=== PATIENT | male | born 1985 | race Caucasian/White ===

== ENCOUNTER 2019-12-22 12:15 | Emergency (ER) | payer OTHER, SELFPAY ==
--- NOTE | ~2019-12-22 | CT_ITS ---
EXAMINATION: CT abdomen pelvis w con DATE: 12/22/2019 13:49 INDICATION: Left lower quadrant abdominal pain TECHNIQUE: Computed tomography (CT) of the abdomen and pelvis was performed with 100 mL Omnipaque-350 intravenous contrast. Automated exposure control and iterative reconstruction technique were employe d. The dose-length product was 461.94 mGy-cm. COMPARISON: 04/14/2018 FINDINGS: Unchanged pleural parenchymal scarring and round atelectasis at the anterobasilar right lower lobe. H eart size is normal. No pericardial or pleural effusion. Liver, gallbladder, spleen, pancreas, bilate ral adrenal glands and kidneys are normal. Postoperative change of prior cecal resection with right l ower quadrant ileostomy. No bowel obstruction. Diffuse fatty infiltration of the remaining colon desmond g with moderate scattered diverticulosis without adjacent inflammatory change to suggest diverticulit is. There are couple small fat-containing ventral hernias arising from a region of ventral diastases extending short distance cephalad and caudal to the level of the umbilicus. Bladder is normal. No mirza e intraperitoneal gas or fluid. No pathologically enlarged abdominal or pelvic lymphadenopathy. Mild lumbar levocurvature with minimal spondylosis. IMPRESSION: 1. No acute intra-abdominal/pelvic process. Reviewed, dictated and finalized at location A.
[2019-12-22 12:23] VITALS: BP 134/83; PULSE 84; RESP 18; TEMP 36.2; O2SAT 100
[2019-12-22 13:21] LABS: Basophils Percent Auto 0.4 % (0.2-1.2); Eosinophils Percent Auto 0.4 % (0-4.4); Hematocrit 45.5 % (42.0-52.0); Hemoglobin 15.5 g/dL (14.0-18.0); Immature Granulocyte Absolute 0.04 K/mm3 (0.00-0.031); Immature Granulocyte Percent A 0.5 % (0-0.5); Lymphocytes Absolute Auto 1.97 K/mm3 (0.9-3.2); Lymphocytes Percent Auto 25.7 % (18.3-44.2); Mean Corpuscular HGB Conc 34.1 g/dl (32-36); Mean Corpuscular Hemoglobin 31.1 pg (26-34); Mean Corpuscular Volume 91.2 fl (80-100); Monocytes Absolute Auto 0.5 K/mm3 (0.1-0.6); Monocytes Percent Auto 5.9 % (2.6-8.5); Neutrophils Absolute Auto 5.2 K/mm3 (1.3-6.7); Neutrophils Percent Auto 67.1 % (45.5-73.1); Platelet Count Result 245 k/mm3 (150-375); Red Blood Count 4.99 M/mm3 (4.6-6.20); Red Cell Distribution Width 13.4 % (11.5-14.5); White Blood Count 7.7 K/mm3 (4.5-10.0)
[2019-12-22 13:23] LABS: Add Urine Microscopic? NO; Appearance Urine Clear (Clear); Bilirubin Urine Negative (Negative); Blood Urine Negative (Negative); Color Urine Yellow (Yellow); Glucose Urine UA Negative (Negative); Ketones Urine Negative (Negative); Leukocyte Esterase Ur Negative LEU/UL (Negative); Nitrate Urine Negative (Negative); Protein Urine Negative (Negative); Specific Grav Ur 1.015 (1.001-1.035); Urobilinogen Urine Negative mg/dL (<2.0)
--- NOTE | 2019-12-22 13:29 | ED.ABDPAIN ---
HPI - Abdominal Pain General Chief Complaint: Abdominal Pain Stated Complaint: abd pain Time Seen by Provider: 12/22/19 13:16 Source: patient History of Present Illness HPI narrative: Patient complaining of left lower quadrant pain, like fullness for the last 2 weeks. History of Crohn's disease. Patient was seen by his family physician few days ago and started on prednisone for possible flareup of Crohn's disease. Patient denies any fever, chills, nausea, vomiting, diarrhea, constipation or urinary symptoms. Patient reports intermittent nausea and belching. History of ileostomy. Patient declined to take any pain medication at this time. No family member at the bedside. Related Data Home Medications Medication Instructions Recorded Confirmed amoxicillin 12/22/19 Allergies Allergy/AdvReac Type Severity Reaction Status Date / Time codeine Allergy Unknown flushing, Verified 12/22/19 12:27 feels hot Review of Systems Review of Systems: Narrative: CONSTITUTIONAL: Denies fever, chills, or sweats. EYES: Denies visual changes, redness, or discharge. ENT: Denies rhinorrhea, congestion, sore throat, or otalgia. CARDIOVASCULAR: Denies chest pain, palpitations, or edema. RESPIRATORY: Denies cough or dyspnea. GASTROINTESTINAL: Abdominal pain with nausea GENITOURINARY: Denies dysuria or hematuria. SKIN: Denies rash or itching. MUSCULOSKELETAL: Denies back pain, joint pain, or myalgia. NEUROLOGIC: Denies headache, numbness, or weakness. PSYCHIATRIC: Denies anxiety or depression. PMFSH Family History Family History Mother Family history of scoliosis Social History Social History Smoking status: Former smoker Smoking end date: 06/20/11 Alcohol intake: current Gender identity (if verbalized by the patient): Male Exam Narrative: Exam Narrative: General appearance: Well-developed, well-nourished Skin: Normal color Head: Normocephalic, nontraumatic Eyes: Clear conjunctiva ENT: Oropharynx normal, ears normal, nose normal Neck: Supple, nontender Chest and respiratory: Airway patent, no respiratory distress, no accessory muscle use Heart: Regular rate/rhythm Abdomen: Soft, moderate tenderness left lower quadrant, no organomegaly, quiet bowel sounds Vascular: Normal peripheral pulses, normal capillary refill. 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 Labs, CT abdomen and pelvis with IV contrast, IV fluid ordered. Further plan to follow Differential Diagnosis Differential diagnosis: Likely abdominal pain, diverticulitis and small bowel obstruction Lab Data Result diagrams: 12/22/19 13:11 12/22/19 13:11 Labs: Lab Results 12/22/19 12/22/19 12/22/19 Range/Units 13:11 13:11 13:13 WBC 7.7 (4.5-10.0) K/mm3 RBC 4.99 (4.6-6.20) M/mm3 Hgb 15.5 (14.0-18.0) g/dL Hct 45.5 (42.0-52.0) %
[2019-12-22 13:33] LABS: Alanine Aminotransferase 126 U/L (4-50); Albumin Level 4.3 g/dL (3.5-5.1); Alkaline Phosphatase 68 U/L (38-126); Aspartate Amino Transferase 69 U/L (17-59); Bilirubin,Total 1.6 mg/dL (0.2-1.3); Blood Urea Nitrogen 8 mg/dL (9-20); Calcium 8.8 mg/dL (8.4-10.2); Carbon Dioxide 27 mmol/L (22-30); Chloride 101 mmol/L (98-107); Estimated CRCL calculation 108 ml/min; Estimated Glomerular Filt Rate > 60; Glucose 81 mg/dL (75-110); Lipase 124 U/L (23-300); Potassium 3.8 mmol/L (3.4-5.0); Sodium 137 mmol/L (137-145)
[2019-12-22] MEDS: SODIUM CHLORIDE 0.9% IV 1,000 ML 999 ML IV CONT (14:19)
[2019-12-22 14:20] VITALS: BP 121/80; PULSE 74; RESP 18; TEMP 36.6; O2SAT 99
--- NOTE | 2019-12-22 14:22 | PC.NURSE ---
Patient still reports some complaint of nausea with no worsening in pain level. He does not wish for me to ask EDP for nausea or pain medication at this time.
[2019-12-22 14:58] VITALS: BP 108/76; PULSE 92; RESP 18; TEMP 36.6; O2SAT 98
== END 2019-12-22 15:09 | disposition home or self-care (01) ==
PROVIDERS: Emergency Medicine; Emergency Provider Emergency Medicine; PCP Family Medicine
DX: R10.32 Left lower quadrant pain (principal); K50.90 Crohn's disease, unspecified, without complications; Z87.891 Personal history of nicotine dependence
CPT/HCPCS: 36415; 74177; 80053; 81003; 83690; 85025; 96360; 99284; J7030; Q9967

== ENCOUNTER 2020-12-05 15:03 | Emergency (ER) | payer OTHER, SELFPAY ==
[2020-12-05 15:10] VITALS: BP 152/99; PULSE 115; RESP 16; TEMP 37.1; O2SAT 98
[2020-12-05 15:11] VITALS: BP 152/99; PULSE 115; RESP 16; TEMP 37.1; O2SAT 98
[2020-12-05 15:23] VITALS: BP 125/86
--- NOTE | 2020-12-05 15:24 | ED.GENADULT ---
HPI - General Adult General Chief complaint: Extremity Injury, Lower Stated complaint: lt calf pain Time Seen by Provider: 12/05/20 15:24 Source: patient and RN notes reviewed Mode of arrival: ambulatory Limitations: no limitations History of Present Illness HPI narrative: 34-year-old male presents with complaints of left calf pain for the past 2 hours. ?Jeff reports walking heard a pop and felt pain, increasing pain with walking. ?No treatment. ?Denies radiation of pain. No numbness or tingling or bleeding. No swelling. ?No loss of mobility. Exacerbating factor consists of bearing weight to the leg. ?Denies recent travel or long car rides. History of DVT or PE. ?No chest pain or dyspnea. ?Remains active. The patient reports she has not been diagnosed with COVID-19. ?The patient reports she is not waiting for the results of a COVID-19 lab test. ?The patient reports she does not have fever, chills, weakness, fatigue, or myalgia. ?The patient reports she does not have a new or worsening cough. ?The patient reports she does not have any rhinorrhea, congestion, sore throat, nausea, vomiting, abdominal pain, and diarrhea. Tolerating po intake well. Denies recent traveling. ?Denies concerns for COVID-19 or exposures. ?At this time, the patient is not suspected of having COVID-19. Some parts of this dictation were generated by voice recognition software and may contain typographical and/or grammatical inaccuracies. Related Data Home Medications Medication Instructions Recorded Confirmed cetirizine 10 mg tablet 10 mg PO DAILY PRN 04/16/20 12/05/20 Allergies Allergy/AdvReac Type Severity Reaction Status Date / Time codeine Allergy Unknown flushing, Verified 12/05/20 15:06 feels hot Review of Systems Review of Systems: Narrative: CONSTITUTIONAL: Denies fever, chills, sweats. EYES: Denies visual changes, redness, discharge. ENT: Denies rhinorrhea, congestion, sore throat, otalgia. CARDIOVASCULAR: Denies chest pain, palpitations, edema. RESPIRATORY: Denies dyspnea, wheezing, cough. GASTROINTESTINAL: Denies abdominal pain, nausea, vomiting, diarrhea. SKIN: Denies rash or itching. MUSCULOSKELETAL: Denies acute back pain or myalgia. Complains of Left leg calf pain. NEUROLOGIC: Denies numbness or focal weakness. PSYCHIATRIC: Denies anxiety or depression. All other systems reviewed & are unremarkable except as noted in HPI and below. [facility] Past Medical History Medical History (Updated 12/12/20 @ 06:57 by DALE Domínguez) Colostomy present Crohn's disease of large intestine Ex-smoker for more than 1 year Tinea corporis Surgical History Surgical History (Updated 12/12/20 @ 06:57 by DALE Domínguez) History of abdominal surgery Family History Family History (Updated 12/12/20 @ 06:58 by DALE Domínguez) Mother Family history of scoliosis Diabetes mellitus Father Alive and well Social History Social History (Updated 12/12/20 @ 07:00 by DALE Domínguez) Smoking status: Former smoker Tobacco type: cigarettes Smoking end date: 06/20/11 Alcohol intake: former Alcohol use details: Jeff reports quitting 2 years ago Substance use: former Last use: Jeff reports quitting 1 year ago Living arrangements: with family Occupation/Education: occupation Gender identity (if verbalized by the patient): Male Sexual Orientation (if Verbalized by the Patient): Straight or Heterosexual Comments At time of signature, agree with the nurse past medical, surgical, social, and family history.? There is no relevant family history pertinent to the presenting complaint. Exam Narrative: Exam Narrative: GENERAL: This is a well-nourished, well-developed patient, in no apparent distress. Talks in full sentences and ambulates with LT antalgic gait without dyspnea. HEAD: Normocephalic, atraumatic. EYES: PERRL. Sclera clear/white. Vision is grossly intact. NECK: Neck supple, n
[2020-12-05] MEDS: KETOROLAC (*BKC) 60 MG/2 ML VIAL IM (15:56)
== END 2020-12-05 16:18 | disposition home or self-care (01) ==
PROVIDERS: Emergency Provider Nurse Practitioner Family; PCP Family Medicine
DX: S86.112A Strain of other muscle(s) and tendon(s) of posterior muscle group at lower leg level, left leg, initial encounter (principal); X58.XXXA Exposure to other specified factors, initial encounter; Z93.3 Colostomy status; Z87.891 Personal history of nicotine dependence
CPT/HCPCS: 96372; 99213; G0463; J1885

== ENCOUNTER 2021-01-13 15:19 | Emergency (ER) | payer OTHER, SELFPAY ==
--- NOTE | ~2021-01-13 | CT_ITS ---
EXAMINATION: CT abdomen pelvis w con INDICATION: Right upper quadrant pain, history of Crohn's disease and ileostomy TECHNIQUE: Computed tomographic images of the abdomen and pelvis were obtained after the administrati on of 100 cc of Omnipaque 350 intravenous contrast. The dose-length product (DLP) was 511.89 mGy-cm. Automated exposure control and iterative reconstruction technique were employed. COMPARISON: 12/22/2019 FINDINGS: There is chronic rounded atelectasis of the right lower lobe. The heart size is normal. The liver, spleen, pancreas, gallbladder, and adrenal glands are normal. The kidneys are unremarkable. N o pathologically enlarged abdominal or pelvic lymph nodes are identified. There is no free intraperit santos gas or evidence of bowel obstruction. Changes of right lower quadrant ileostomy formation are n oted. There are multiple midline ventral hernias containing fat. There is mild lumbar spondylosis. IMPRESSION: 1. No CT correlate for the patient's symptoms. Reviewed, dictated and finalized at location A.
[2021-01-13 15:41] VITALS: BP 133/89; PULSE 107; RESP 16; TEMP 37; O2SAT 99
[2021-01-13 16:00] LABS: Basophils Percent Auto 0.4 % (0.2-1.2); Eosinophils Absolute Auto 0.1 K/mm3 (0-0.3); Eosinophils Percent Auto 1.2 % (0-4.4); Hematocrit 44.6 % (42.0-52.0); Hemoglobin 15.6 g/dL (14.0-18.0); Immature Granulocyte Absolute 0.02 K/mm3 (0.00-0.031); Immature Granulocyte Percent A 0.3 % (0-0.5); Lymphocytes Absolute Auto 1.84 K/mm3 (0.9-3.2); Lymphocytes Percent Auto 23.9 % (18.3-44.2); Mean Corpuscular Hemoglobin 30.8 pg (26-34); Mean Corpuscular Volume 88.1 fl (80-100); Mean Platelet Volume 9.8 fl (7.4-10.4); Monocytes Absolute Auto 0.5 K/mm3 (0.1-0.6); Monocytes Percent Auto 5.9 % (2.6-8.5); Neutrophils Absolute Auto 5.3 K/mm3 (1.3-6.7); Neutrophils Percent Auto 68.3 % (45.5-73.1); Platelet Count Result 273 k/mm3 (150-375); Red Blood Count 5.06 M/mm3 (4.6-6.20); Red Cell Distribution Width 12.9 % (11.5-14.5); White Blood Count 7.7 K/mm3 (4.5-10.0)
[2021-01-13 16:15] LABS: Alanine Aminotransferase 183 U/L (4-50); Alkaline Phosphatase 84 U/L (38-126); Anion Gap 13 mmol/L (8-16); Aspartate Amino Transferase 103 U/L (17-59); Bilirubin,Total 2.1 mg/dL (0.2-1.3); Blood Urea Nitrogen 10 mg/dL (9-20); Calcium 9.7 mg/dL (8.4-10.2); Carbon Dioxide 23 mmol/L (22-30); Chloride 103 mmol/L (98-107); Estimated CRCL calculation 89 ml/min; Estimated Glomerular Filt Rate > 60; Glucose 81 mg/dL (65-110); Lipase 94 U/L (23-300); Potassium 3.8 mmol/L (3.4-5.0); Sodium 139 mmol/L (137-145)
[2021-01-13 16:46] LABS: Add Urine Microscopic? YES; Appearance Urine Clear (Clear); Bilirubin Urine Negative (Negative); Blood Urine 1+ (Negative); Color Urine Yellow (Yellow); Glucose Urine UA Negative (Negative); Ketones Urine 2+ mg/dL (Negative); Leukocyte Esterase Ur Negative LEU/UL (Negative); Mucus Urine Few /lpf; Nitrate Urine Negative (Negative); Protein Urine 1+ mg/dL (Negative); RBC Urine 0-2 /hpf (0-2); Urobilinogen Urine Negative mg/dL (<2.0); WBC Urine 0-3 /hpf
[2021-01-13 16:47] LABS: Specific Grav Ur 1.031 (1.001-1.035)
[2021-01-13 18:36] VITALS: BP 128/92; PULSE 87; RESP 18; O2SAT 100
[2021-01-13 18:37] VITALS: BP 128/92; PULSE 91; RESP 18; O2SAT 99
--- NOTE | 2021-01-13 19:16 | ED.ABDPAIN ---
HPI - Abdominal Pain General Chief Complaint: Abdominal Pain Stated Complaint: ABD PAIN Time Seen by Provider: 01/13/21 18:40 Source: patient Mode of arrival: ambulatory Limitations: no limitations History of Present Illness HPI narrative: Patient is a 35 year old male who presents complaining of right upper quadrant pain x4 days. Patient reports feeling of fullness, nausea without vomiting and diarrhea. He reports decreased p.o. intake and decreased appetite. Patient has a history of Crohn's with ileostomy. He denies taking any [id number] medications for relief. He denies known exposure to Covid, patient is not vaccinated for Covid. He denies all other complaints at this time. Related Data Allergies Allergy/AdvReac Type Severity Reaction Status Date / Time codeine Allergy Unknown flushing, Verified 01/13/21 18:38 feels hot Review of Systems Review of Systems: Narrative: CONSTITUTIONAL: Denies fever, chills, or sweats. EYES: Denies visual changes, redness, or discharge. ENT: Denies rhinorrhea, congestion, sore throat, or otalgia. CARDIOVASCULAR: Denies chest pain, palpitations, or edema. RESPIRATORY: Denies cough or dyspnea. GASTROINTESTINAL: Reports right upper abdominal pain nausea and bloating GENITOURINARY: Denies dysuria or hematuria. SKIN: Denies rash or itching. MUSCULOSKELETAL: Denies back pain, joint pain, or myalgia. NEUROLOGIC: Denies headache, numbness, dizziness, or weakness. PSYCHIATRIC: Denies anxiety or depression. PMFSH Past Medical History Medical History Colostomy present Crohn's disease of large intestine Ex-smoker for more than 1 year Tinea corporis Surgical History Surgical History History of abdominal surgery Family History Family History Mother Family history of scoliosis Diabetes mellitus Father Alive and well Social History Social History Smoking status: Former smoker Tobacco type: cigarettes Smoking end date: 06/20/11 Alcohol intake: former Alcohol use details: Jeff reports quitting 2 years ago Substance use: former Last use: Jeff reports quitting 1 year ago Gender identity (if verbalized by the patient): Male Comments At the time of signature, I have reviewed and agree with nursing past medical, surgical, social, and family history unless otherwise noted. Please see nursing chart for further information. There is no relevant family history pertinent to the presenting complaint. Exam Narrative: Exam Narrative: GENERAL: Well-appearing, well-nourished, and in no acute distress. HEAD: Normocephalic, atraumatic. EYES: EOMI. No redness or drainage. Conjunctiva are normal. ENT: Mucous membranes pink and moist. CHEST: No respiratory distress. Clear to auscultation. HEART: Regular rate and rhythm. No murmur appreciated. Normal peripheral pulses. GI: Soft, nontender without rebound, or guarding. No distention. Bowel sounds normal in all quadrants. MUSCULOSKELETAL: No bony tenderness. EXTREMITIES: Normal range of motion. No edema. SKIN: Warm, dry, no rash. NEURO: No focal deficits. Alert and oriented x3. Gait steady. PSYCH: Normal affect. No signs of depression or anxiety. Course Vital Signs Vital signs: Vital Signs Temperature 37.0 C 01/13/21 15:41 Pulse Rate 107 H 01/13/21 15:41 Respiratory Rate 16 01/13/21 15:41 Blood Pressure 133/89 01/13/21 15:41 Pulse Oximetry 99 01/13/21 15:41 Temperature 37.0 C 01/13/21 15:41 Pulse Rate 78 01/13/21 21:52 Respiratory Rate 18 01/13/21 21:52 Blood Pressure 115/84 01/13/21 21:52 Pulse Oximetry 99 01/13/21 21:52 Reviewed. Patient has been instructed to follow-up with his PCP regarding his blood pressure. MDM - Abdominal Pain Differential Ca
[2021-01-13] MEDS: SODIUM CHLORIDE 0.9% IV 1,000 ML 999 ML IV CONT (20:05)
[2021-01-13 20:07] VITALS: BP 130/87; PULSE 88; RESP 18; O2SAT 98
[2021-01-13 21:52] VITALS: BP 115/84; PULSE 78; RESP 18; O2SAT 99
[2021-01-13] MEDS: FAMOTIDINE 20 MG/2 ML VIAL IV PUSH (21:58)
[2021-01-14 00:42] VITALS: BP 121/80; PULSE 79; RESP 18; O2SAT 98
== END 2021-01-14 00:47 | disposition home or self-care (01) ==
PROVIDERS: Emergency Medicine; Emergency Provider Nurse Practitioner; PCP Family Medicine
DX: R10.11 Right upper quadrant pain (principal); K50.10 Crohn's disease of large intestine without complications; Z93.2 Ileostomy status; Z87.891 Personal history of nicotine dependence; R03.0 Elevated blood-pressure reading, without diagnosis of hypertension
CPT/HCPCS: 36415; 74177; 80053; 81001; 83690; 85025; 96361; 96374; 99284; J7030; Q9967

== ENCOUNTER 2021-06-21 12:18 | Emergency (ER) | payer OTHER, SELFPAY ==
--- NOTE | ~2021-06-21 | XR_ITS ---
EXAMINATION: XR chest 2V EXAM DATE: 06/21/2021 13:34 INDICATION: Left-sided chest pain. TECHNIQUE: Frontal and lateral projections of the chest obtained and reviewed. There is no prior leyla dy for comparison. FINDINGS: The lungs are clear. There are no pleural effusions. The cardiomediastinal silhouette is within normal limits. There is no pneumothorax suspected. The bones and soft tissues are unremarkab le. IMPRESSION: No acute cardiopulmonary findings. Reviewed, dictated and finalized at location A. MACOGENETICIST
[2021-06-21 12:44] VITALS: BP 123/88; PULSE 94; RESP 16; TEMP 36.5; O2SAT 100
--- NOTE | 2021-06-21 12:49 | ECG_ITS ---
Measurements Intervals [place] Rate: 89 P: 48 UT: 147 QRS: 55 QRSD: 104 T: 23 QT: 351 QTc: 428 Interpretive Statements SINUS RHYTHM POSSIBLE LEFT ATRIAL ENLARGEMENT INCOMPLETE RIGHT BUNDLE BRANCH BLOCK BORDERLINE T WAVE ABNORMALITY- INFERIOR LEADS BORDERLINE ECG Electronically Signed On 06-21-2021 17:27:29 MACHINE SHOP HELPER by Amos Uribe D.O.
--- NOTE | 2021-06-21 13:11 | ED.GENADULT ---
HPI - General Adult General Chief complaint: Chest Pain Stated complaint: chest pain Time Seen by Provider: 06/21/21 13:10 Source: patient and RN notes reviewed History of Present Illness HPI narrative: Patient is 35 y/o male complaining of left sided chest pain since yesterday. He describes his pain as a tightness and rates it as 4/10. He has states that his symptoms seem to be worse with exertion. He also has some mild SOB. He has no fever or cough. He state that he took Aspirin 325 mg prior to arrival. Related Data Home Medications Medication Instructions Recorded Confirmed famotidine 20 mg tablet 20 mg PO DAILY 01/27/21 01/27/21 ibuprofen 200 mg tablet 200 mg PO Q6H PRN 01/27/21 01/27/21 Allergies Allergy/AdvReac Type Severity Reaction Status Date / Time codeine Allergy Unknown flushing, Verified 06/21/21 19:37 feels hot Review of Systems Constitutional: Constitutional: Denies chills, Denies fever(s), Denies headache(s) and Denies weakness Eyes: Eyes: Denies blurry vision ENT: Denies headache(s) and Denies neck pain Cardiovascular: Cardiovascular: Reports chest pain and Reports dyspnea Respiratory: Respiratory: Denies cough and Reports dyspnea Gastrointestinal: Gastrointestinal: Denies abdominal pain, Denies diarrhea, Denies nausea and Denies vomiting Genitourinary: Genitourinary: Denies hematuria and Denies dysuria Musculoskeletal: Musculoskeletal: Denies back pain and Denies neck pain Neurologic: Denies headache(s) and Denies weakness PMFSH Past Medical History Medical History Colostomy present Crohn's disease of large intestine Ex-smoker for more than 1 year Tinea corporis Surgical History Surgical History History of abdominal surgery Family History Family History Mother Family history of scoliosis Diabetes mellitus Father Alive and well Social History Social History Tobacco type: cigarettes Smoking end date: 06/20/11 Alcohol intake: former Alcohol use details: Jeff reports quitting 2 years ago Substance use: former Last use: Jeff reports quitting 1 year ago Gender identity (if verbalized by the patient): Male Sexual Orientation (if Verbalized by the Patient): Straight or Heterosexual Exam Const: General: no acute distress and well developed Orientation/consciousness: oriented to person, oriented to place, oriented to time and patient oriented x3 HENMT: Head: normocephalic Ears: external ears normal General nose exam: Normal external nose present Eyes: General: appearance normal, both eyes and all related structures Conjunctivae: conjunctivae normal Neck: Neck: normal visual inspection and full ROM Chest: Chest palpation & inspection: normal inspection of the chest and no tenderness Resp: Effort & Inspection: normal respiratory effort Auscultation: clear to auscultation bilaterally Cardio: Rate: regular rate Rhythm: regular rhythm GI: GI Palp: No abdominal tenderness and Yes Soft to palpation Skin: General skin exam: normal color and turgor normal Neuro: General: oriented to person, oriented to place, oriented to time and patient oriented x3 Cognition (Neuro): normal cognition Extrem: General: normal to inspection, full ROM and no pedal edema Psych: Appearance: grossly normal Mental Status: mental status grossly normal Affect: normal affect Course Reevaluation(s) Reevaluation #1: I discussed with patient about his labs, ekg and Xray results. I instructed him to follow up with PCP for further evaluation including possible stress test. Date: 06/21/21 Vital Signs Vital signs: Vital Signs Temperature 36.5 C 06/21/21 12:44 Pulse Rate 94 06/21/21 12:44 Respiratory Rate 16 06/21/21 12:44 Blood Pressure 123/88 06/21/21 12
[2021-06-21 13:24] LABS: Basophils Percent Auto 0.4 % (0.2-1.2); Eosinophils Absolute Auto 0.1 K/mm3 (0-0.3); Eosinophils Percent Auto 1.3 % (0-4.4); Hematocrit 46.8 % (42.0-52.0); Hemoglobin 16.4 g/dL (14.0-18.0); Immature Granulocyte Absolute 0.01 K/mm3 (0.00-0.031); Immature Granulocyte Percent A 0.1 % (0-0.5); Lymphocytes Absolute Auto 1.39 K/mm3 (0.9-3.2); Lymphocytes Percent Auto 16.7 % (18.3-44.2); Mean Corpuscular Hemoglobin 31.5 pg (26-34); Mean Platelet Volume 9.5 fl (7.4-10.4); Monocytes Absolute Auto 0.5 K/mm3 (0.1-0.6); Monocytes Percent Auto 5.6 % (2.6-8.5); Neutrophils Absolute Auto 6.3 K/mm3 (1.3-6.7); Neutrophils Percent Auto 75.9 % (45.5-73.1); Platelet Count Result 260 k/mm3 (150-375); Red Cell Distribution Width 13.2 % (11.5-14.5); White Blood Count 8.3 K/mm3 (4.5-10.0)
[2021-06-21 13:36] LABS: Alanine Aminotransferase 161 U/L (4-50); Albumin Level 4.8 g/dL (3.5-5.1); Alkaline Phosphatase 84 U/L (38-126); Anion Gap 12 mmol/L (8-16); Aspartate Amino Transferase 88 U/L (17-59); Bilirubin,Total 1.6 mg/dL (0.2-1.3); Blood Urea Nitrogen 10 mg/dL (9-20); Calcium 9.8 mg/dL (8.4-10.2); Carbon Dioxide 23 mmol/L (22-30); Chloride 103 mmol/L (98-107); Estimated CRCL calculation 99 ml/min; Estimated Glomerular Filt Rate > 60; Glucose 103 mg/dL (65-110); Lipase 60 U/L (23-300); Potassium 4.1 mmol/L (3.4-5.0); Sodium 138 mmol/L (137-145)
[2021-06-21 13:38] LABS: INR 0.9; Prothrombin Time 12.5 Seconds (11.1-14.7)
[2021-06-21 13:40] LABS: Partial Thromboplastin Time 25.2 SECONDS (22.3-36.8)
[2021-06-21 13:47] LABS: Troponin I < 0.012 ng/mL (0.000-0.034)
[2021-06-21 17:13] LABS: D Dimer 0.27 ug/mL (<0.48)
[2021-06-21 17:14] LABS: Troponin I < 0.012 ng/mL (0.000-0.034)
[2021-06-21 17:23] VITALS: BP 122/84; PULSE 104; RESP 20; TEMP 36.8; O2SAT 97
[2021-06-21 19:36] VITALS: BP 135/96; PULSE 79; RESP 16; O2SAT 98
[2021-06-21 19:37] LABS: Troponin I < 0.012 ng/mL (0.000-0.034)
== END 2021-06-21 20:15 | disposition home or self-care (01) ==
PROVIDERS: Emergency Provider Emergency Medicine; PCP Family Medicine
DX: R07.89 Other chest pain (principal); K50.90 Crohn's disease, unspecified, without complications; Z87.891 Personal history of nicotine dependence; Z93.3 Colostomy status; I45.10 Unspecified right bundle-branch block; R94.31 Abnormal electrocardiogram [ECG] [EKG]
CPT/HCPCS: 36415; 71046; 80053; 83690; 84484; 85025; 85380; 85610; 85730; 93005; 99284

== ENCOUNTER 2022-02-19 09:53 | Outpatient (CLI) | payer OTHER, SELFPAY ==
--- NOTE | 2022-02-19 10:21 | EST_ITS ---
Patient Info Name: Jeff Noguera Age: 36 years : 1985 Gender: Male Ht: 69 in Wt: 180 lbs BSA: 2.01 m2 Exam Date: 02/19/2022 11:01 AM [facility] Patient Status: Outpatient Admit Date: 02/19/2022 Staff Ordering Physician: Fernie Bone MD Live Ammunition Inspector: Sana Jean Baptiste RDCS Attending Provider: Fernie Bone MD Referring Physician: Lizandro DELGADO; Exercise Technologist: Cindy Gorman CT Exercise Physician: Amos Uribe DO Exam Type: CA stress echo Study Info Indications R07.9 - Chest pain, unspecified Summary 1. 1. Negative Anthony exercise stress test for ischemic ST changes by ECG criteria. 2. 2. Reduced functional capacity, achieving 9 METs of workload. 3. 3. Appropriate HR response to exercise. 4. 4. Appropriate HR recovery at 1 minute post exercise. 5. 5. Negative stress echocardiogram for ischemia by wall motion analysis. 6. 6. Patient informed of the above results. Stress Echo Findings Left Ventricle Appropriate increase in LV endocardial thickening with systole. Appropriate augmentation of contractility with systole. No wall motion abnormality. Left Ventricle Normal LV systolic function, no wall motion abnormality. Protocol: Anthony Stress ECG Details Stage: REST Duration (min): 2 min : 19 sec Speed (mph): 0.0 Grade (%): 0 HR (bpm): 88 SBP (mmHg): 121 DBP (mmHg): 86 METS: --- Stage: REST Duration (min): 24 min : 57 sec Speed (mph): 0.0 Grade (%): 0 HR (bpm): 90 SBP (mmHg): 121 DBP (mmHg): 86 METS: --- Stage: STAGE 1 Duration (min): 1 min : 0 sec Speed (mph): 1.7 Grade (%): 10 HR (bpm): 117 SBP (mmHg): 121 DBP (mmHg): 86 METS: --- Stage: STAGE 1 Duration (min): 2 min : 0 sec Speed (mph): 1.7 Grade (%): 10 HR (bpm): 123 SBP (mmHg): 121 DBP (mmHg): 86 METS: --- Stage: STAGE 1 Duration (min): 3 min : 0 sec Speed (mph): 1.7 Grade (%): 10 HR (bpm): 129 SBP (mmHg): 169 DBP (mmHg): 81 METS: --- Stage: STAGE 2 Duration (min): 1 min : 0 sec Speed (mph): 2.5 Grade (%): 12 HR (bpm): 139 SBP (mmHg): 169 DBP (mmHg): 81 METS: --- Stage: STAGE 2 Duration (min): 2 min : 0 sec Speed (mph): 2.5 Grade (%): 12 HR (bpm): 151 SBP (mmHg): 208 DBP (mmHg): 76 METS: --- Stage: STAGE 2 Duration (min): 3 min : 0 sec Speed (mph): 2.5 Grade (%): 12 HR (bpm): 158 SBP (mmHg): 204 DBP (mmHg): 74 METS: --- Stage: STAGE 3 Duration (min): 1 min : 0 sec Speed (mph): 3.4 Grade (%): 14 HR (bpm): 176 SBP (mmHg): 199 DBP (mmHg): 76 METS: --- Stage: STAGE 3 Duration (min): 1 min : 31 sec Speed (mph): 0.0 Grade (%): 0 HR (bpm): 180 SBP (mmHg): 199 DBP (mmHg): 76 METS: --- Stage: RECOVERY Duration (min): 0 min : 28 sec Speed (mph): 0.0 Grade (%): 0 HR (bpm): 170 SBP (mmHg): 199 D
== END 2022-02-19 09:54 | disposition home or self-care (01) ==
LOC: ANHCARD 09:53
PROVIDERS: PCP Family Medicine; Visit Provider Family Medicine
DX: R07.9 Chest pain, unspecified (principal)
CPT/HCPCS: 93351

== ENCOUNTER 2022-09-01 08:56 | Outpatient (CLI) | payer OTHER, SELFPAY ==
--- NOTE | ~2022-09-01 | US_ITS ---
Limited Abdominal Sonogram: Real-time sonographic imaging of the right upper quadrant was performed. Clinical History: Abnormal liver function Findings: The liver appears echogenic, with no evidence of mass lesion or bile duct dilatation. Main portal vein demonstrates normal direction of flow. The gallbladder is well distended, and appears no rmal with no evidence of gallstone or wall thickening. The common bile duct measures 4 mm. The visua lized pancreas, aorta, and IVC are unremarkable. Impression: Diffuse fatty infiltration of the liver. Reviewed, dictated and finalized at location M. Impression: Diffuse fatty infiltration of the liver.
== END 2022-09-01 08:57 | disposition home or self-care (01) ==
LOC: ANHIMG 08:57
PROVIDERS: PCP Family Medicine; Visit Provider Internal Medicine Gastroenterology
DX: R94.5 Abnormal results of liver function studies (principal); K76.0 Fatty (change of) liver, not elsewhere classified
CPT/HCPCS: 76705

== ENCOUNTER 2022-09-25 14:35 | Emergency (ER) | payer OTHER, SELFPAY ==
--- NOTE | ~2022-09-25 | CT_ITS ---
EXAMINATION: CT abdomen pelvis w con DATE: 09/25/2022 17:22 INDICATION: RUQ pain TECHNIQUE: Computed tomography (CT) of the abdomen and pelvis was performed with 100 mL Omnipaque-350 intravenous contrast. Automated exposure control and iterative reconstruction technique were employe d. The dose-length product was 561.54 mGy-cm. COMPARISON: 01/13/2021. FINDINGS: Lower thorax: Right peripheral/basal scar Liver: Normal. Biliary/Gallbladder: Gallbladder is normal. No bile duct dilation. Pancreas: No mass or duct dilation. Spleen: Normal. Adrenals:No mass. Kidneys: No mass, stone, or hydronephrosis. GI tract: No small or large bowel dilation. Right lower quadrant ileostomy. Prior partial right colon ic resection. Appendix not visualized. Diverticulosis without diverticulitis. Colonic submucosal fat as can be seen with chronic IBD, obesity, chemotherapy treatment, and celiac disease. Mesentery/Peritoneum: No ascites, mass, or free air. Retroperitoneum: No mass. Pelvis: Pelvic organs are within normal limits. Soft Tissues: Multiple uncomplicated fat-containing ventral hernias. Bones: No acute osseous finding. IMPRESSION: No acute abdominopelvic process detected. Reviewed, dictated and finalized at location [facility].
[2022-09-25 14:38] VITALS: BP 158/92; PULSE 106; RESP 18; TEMP 36.6; O2SAT 99
[2022-09-25 14:53] LABS: Basophils Percent Auto 0.4 % (0.2-1.2); Eosinophils Absolute Auto 0.1 K/mm3 (0-0.3); Eosinophils Percent Auto 1.2 % (0-4.4); Hematocrit 44.5 % (42.0-52.0); Hemoglobin 15.3 g/dL (14.0-18.0); Immature Granulocyte Absolute 0.02 K/mm3 (0.00-0.031); Immature Granulocyte Percent A 0.2 % (0-0.5); Lymphocytes Absolute Auto 1.72 K/mm3 (0.9-3.2); Lymphocytes Percent Auto 21.4 % (18.3-44.2); Mean Corpuscular HGB Conc 34.4 g/dl (32-36); Mean Corpuscular Hemoglobin 30.9 pg (26-34); Mean Corpuscular Volume 89.9 fl (80-100); Mean Platelet Volume 9.7 fl (7.4-10.4); Monocytes Absolute Auto 0.5 K/mm3 (0.1-0.6); Monocytes Percent Auto 6.5 % (2.6-8.5); Neutrophils Absolute Auto 5.6 K/mm3 (1.3-6.7); Neutrophils Percent Auto 70.3 % (45.5-73.1); Platelet Count Result 281 k/mm3 (150-375); Red Blood Count 4.95 M/mm3 (4.6-6.20); Red Cell Distribution Width 13.5 % (11.5-14.5)
[2022-09-25 15:01] LABS: Appearance Urine Clear (Clear); Bilirubin Urine Negative (Negative); Blood Urine Negative (Negative); Color Urine Dark Yellow (Yellow); Glucose Urine UA Trace mg/dL (Negative); Ketones Urine Trace mg/dL (Negative); Leukocyte Esterase Ur Negative LEU/UL (Negative); Nitrate Urine Negative (Negative); Protein Urine Negative (Negative); pH Urine 5.5 (5.0-9.0)
[2022-09-25 15:04] LABS: Alanine Aminotransferase 88 U/L (6-50); Albumin Level 4.8 g/dL (3.5-5.1); Alkaline Phosphatase 70 U/L (38-126); Anion Gap 9 mmol/L (8-16); Aspartate Amino Transferase 65 U/L (17-59); Bilirubin,Total 1.7 mg/dL (0.2-1.3); Blood Urea Nitrogen 8 mg/dL (9-20); Calcium 9.3 mg/dL (8.4-10.2); Carbon Dioxide 28 mmol/L (22-30); Chloride 103 mmol/L (98-107); Estimated CRCL calculation 109 ml/min; Estimated Glomerular Filt Rate > 60; Glucose 150 mg/dL (65-110); Lipase 81 U/L (23-300); Potassium 3.3 mmol/L (3.4-5.0); Sodium 140 mmol/L (137-145)
[2022-09-25 15:12] LABS: Add Urine Microscopic? NO
[2022-09-25 17:33] VITALS: BP 129/78; PULSE 93; RESP 16; O2SAT 97
[2022-09-25] MEDS: POTASSIUM CHLORIDE 20 MEQ PACKET (FOR LIQUID) 40 MEQ PO (18:07)
--- NOTE | 2022-09-25 18:20 | ED.GENADULT ---
HPI - General Adult General Chief complaint: Abdominal Pain Stated complaint: RUQ pain, jaundice, itching Time Seen by Provider: 09/25/22 16:00 History of Present Illness HPI narrative: 36-year-old male presented to the emergency department for evaluation of concern of increased itching and epigastric pain. Patient reports he was also having dark urine and oily stools. Patient states this is not new to today and has been following up with his physicians for this. Patient reports the pain does worsen with eating. Patient does have an ileostomy secondary to history of Crohn's. Related Data Home Medications Medication Instructions Recorded Confirmed ibuprofen 200 mg tablet (Advil) 200 mg PO Q6H PRN 01/27/21 10/08/22 Allergies Allergy/AdvReac Type Severity Reaction Status Date / Time codeine Allergy Unknown flushing, Verified 10/08/22 15:40 feels hot Review of Systems Review of Systems: All systems reviewed & are unremarkable except as noted in HPI and below PMFSH Past Medical History Medical History Colostomy present Crohn's disease of large intestine Ex-smoker for more than 1 year Tinea corporis Surgical History Surgical History History of abdominal surgery Family History Family History Mother Family history of scoliosis Diabetes mellitus Father Alive and well Social History Social History Smoking status: Former smoker Tobacco type: cigarettes Smoking end date: 06/20/11 Alcohol intake: former Alcohol use details: Jeff reports quitting 2 years ago Substance use: former Last use: Jeff reports quitting 1 year ago Lack of Transportation: No Lack of Food: Never True Current Housing: I Have Housing Concerned About Future Housing: No Difficulty Paying Gas/Electric Bills: YES Difficulty Paying for Meds: YES Currently Unemployed: No Education: High School Diploma/GED Difficulty w/ Childcare or Family Care: No Living arrangements: with family Occupation/Education: occupation Gender identity (if verbalized by the patient): Male Sexual Orientation (if Verbalized by the Patient): Straight or Heterosexual Exam Narrative: APPEARANCE: Well appearing, no pain, no distress, well-nourished. HEAD: normocephalic, atraumatic. EYES: PERRLA/EOMI, conjunctivae clear. NOSE: Normal no drainage NECK: Supple. No adenopathy, no masses. RESPIRATORY: Airway patent, respirations nonlabored. Clear to auscultation bilaterally, no rales, rhonchi, wheezing. CARDIOVASCULAR: Regular rate and rhythm without murmurs rubs or gallops. ABDOMINAL: Soft, nontender, nondistended, normal bowel sounds Rectal exam: Hemoccult negative MUSCULOSKELETAL: Moves all extremities. Strength/ROM intact, No edema, No calf tenderness. NEURO: Alert. Cranial nerves II through XII intact. SKIN: Warm, dry. Normal Color Course Course Emergency Course: 36-year-old male presenting to the ED for complaint of abdominal itching. Patient was concerned about hyperbilirubinemia. Patient was afebrile with no leukocytosis. Patient's hemoglobin is stable. Patient's bilirubin was similar to his baseline at 1.7. CT scan showed no acute abnormalities. UA showed no evidence of urinary tract infection. Patient was comfortable with plan for discharge and close follow-up. All questions concerns were addressed. Vital Signs Vital signs: Vital Signs Temperature 97.8 F 09/25/22 14:38 Pulse Rate 106 H 09/25/22 14:38 Respiratory Rate 18 09/25/22 14:38 Blood Pressure 158/92 H 09/25/22 14:38 Pulse Oximetry 99 09/25/22 14:38 Oxygen Delivery Room Air 09/25/22 14:38 Temperature 97.8 F 09/25/22 14:38 Pulse Rate 84 09/25/22 18:26 Respiratory Rate 16 09/25/22 18:26 Blood Pressure 130/86
[2022-09-25 18:26] VITALS: BP 130/86; PULSE 84; RESP 16; O2SAT 99
== END 2022-09-25 18:27 | disposition home or self-care (01) ==
PROVIDERS: Emergency Medicine; Emergency Provider Emergency Medicine; PCP Family Medicine
DX: R10.13 Epigastric pain (principal); L29.9 Pruritus, unspecified; K50.10 Crohn's disease of large intestine without complications; Z93.3 Colostomy status; Z87.891 Personal history of nicotine dependence
CPT/HCPCS: 36415; 74177; 80053; 81003; 83690; 85025; 99284; A9270; Q9967

== ENCOUNTER 2023-01-24 12:36 | Emergency (ER) | payer OTHER, SELFPAY ==
[2023-01-24] VITALS (42 sets, daily range): BP systolic 110–143; BP diastolic 73–96; PULSE 64–107; RESP 3–22; TEMP 36.2–36.6; O2SAT 90–100
--- NOTE | ~2023-01-24 | XR_ITS ---
Clinical Indication: Chest pain PA and lateral views of the chest: Comparison: 06/21/2021 Findings: The lungs are clear, without evidence of focal consolidation or pleural effusion. Cardiome diastinal silhouette is within normal limits. Bones and soft tissues are unremarkable. Impression: Normal chest. Reviewed, dictated and finalized at location . Impression: Normal chest.
--- NOTE | 2023-01-24 12:39 | ECG_ITS ---
Measurements Intervals Arnold Rate: 106 P: 43 CT: 158 QRS: 55 QRSD: 114 T: 28 QT: 342 QTc: 455 Interpretive Statements SINUS TACHYCARDIA INCOMPLETE RIGHT BUNDLE BRANCH BLOCK [90+ ms QRS DURATION, TERMINAL R IN V1/V2, 40+ ms S IN I/aVL/V4/V5/V6] NONSPECIFIC T-WAVE ABNORMALITY ABNORMAL RHYTHM ECG COMPARED TO ECG 06/21/2021 13:24:47 NO SIGNIFICANT CHANGE Electronically Signed On 01-24-2023 14:10:23 CDT by Fernie Menon M.D.
--- NOTE | 2023-01-24 12:52 | PC.NURSE ---
pt to xray via stretcher at this time
[2023-01-24 12:56] LABS: Basophils Absolute Auto 0.1 K/mm3 (0.0-0.1); Basophils Percent Auto 0.7 % (0.2-1.2); Eosinophils Absolute Auto 0.4 K/mm3 (0-0.3); Eosinophils Percent Auto 5.4 % (0-4.4); Hematocrit 46.2 % (42.0-52.0); Hemoglobin 15.6 g/dL (14.0-18.0); Immature Granulocyte Absolute 0.04 K/mm3 (0.00-0.031); Immature Granulocyte Percent A 0.5 % (0-0.5); Lymphocytes Absolute Auto 2.35 K/mm3 (0.9-3.2); Lymphocytes Percent Auto 30.9 % (18.3-44.2); Mean Corpuscular HGB Conc 33.8 g/dl (32-36); Mean Corpuscular Hemoglobin 30.8 pg (26-34); Mean Corpuscular Volume 91.3 fl (80-100); Mean Platelet Volume 9.3 fl (7.4-10.4); Monocytes Absolute Auto 0.5 K/mm3 (0.1-0.6); Monocytes Percent Auto 7.1 % (2.6-8.5); Neutrophils Absolute Auto 4.2 K/mm3 (1.3-6.7); Neutrophils Percent Auto 55.4 % (45.5-73.1); Platelet Count Result 279 k/mm3 (150-375); Red Blood Count 5.06 M/mm3 (4.6-6.20); Red Cell Distribution Width 13.6 % (11.5-14.5); White Blood Count 7.6 K/mm3 (4.5-10.0)
[2023-01-24 13:05] LABS: Alanine Aminotransferase 126 U/L (6-50); Albumin Level 4.8 g/dL (3.5-5.1); Alkaline Phosphatase 63 U/L (38-126); Anion Gap 9 mmol/L (8-16); Aspartate Amino Transferase 75 U/L (17-59); Blood Urea Nitrogen 8 mg/dL (9-20); Calcium 9.4 mg/dL (8.4-10.2); Carbon Dioxide 22 mmol/L (22-30); Chloride 104 mmol/L (98-107); Estimated CRCL calculation 94 ml/min; Estimated Glomerular Filt Rate > 60; Glucose 114 mg/dL (65-110); INR 0.9; Lipase 79 U/L (23-300); Prothrombin Time 12.8 Seconds (11.1-14.7); Sodium 135 mmol/L (137-145)
[2023-01-24 13:07] LABS: Partial Thromboplastin Time 24.8 SECONDS (22.3-36.8)
[2023-01-24] MEDS: ASPIRIN 81 MG CHEWABLE TABLET 324 MG PO (13:08)
[2023-01-24 13:16] LABS: Troponin I < 0.012 ng/mL (0.000-0.034)
--- NOTE | 2023-01-24 14:20 | ED.CHESTPAIN ---
HPI - Chest Pain General Chief Complaint: Chest Pain Stated Complaint: CP Time Seen by Provider: 01/24/23 13:42 Source: patient Mode of arrival: ambulatory Limitations: no limitations History of Present Illness HPI narrative: Patient is a 37-year-old male who presents ED with report of chest pain. Patient reports having previously been worked up several times for atypical chest pain. Work-ups were always reassuring and thought to be related to his anxiety. Patient reports having intermittent daily chest pain over the last 2 weeks. Denies significant aggravating or alleviating factors, states pain occurs at random. Today around noon, patient experienced a worsening episode of midsternal and left-sided chest pain, radiating through to his back. He states pain was more severe than usual. Worse with taking deep breath. He has not tried anything for the pain today or over the last 2 weeks. Patient also reports having shortness of breath associated with the pain, denies nausea, vomiting, abdominal pain, recent cough or cold symptoms, fevers, lower extremity pain or swelling. Patient denies history of hypertension, hyperlipidemia, diabetes, blood clots. Former smoker. He does have family history of heart disease. Related Data Home Medications Medication Instructions Recorded Confirmed ibuprofen 200 mg tablet (Advil) 200 mg PO Q6H PRN 01/27/21 11/10/22 Allergies Allergy/AdvReac Type Severity Reaction Status Date / Time codeine Allergy Unknown flushing, Verified 11/10/22 13:06 feels hot Review of Systems Review of Systems: CONSTITUTIONAL: Denies fever, chills, or sweats. ENT: Denies rhinorrhea, congestion, sore throat. CARDIOVASCULAR: See HPI. RESPIRATORY: See HPI. GASTROINTESTINAL: Denies abdominal pain, nausea, vomiting. GENITOURINARY: Denies dysuria or hematuria. MUSCULOSKELETAL: See HPI. NEUROLOGIC: Denies headache, numbness, or weakness. PSYCHIATRIC: See HPI. All systems reviewed & are unremarkable except as noted in HPI and below PMFSH Past Medical History Medical History Colostomy present Crohn's disease of large intestine Ex-smoker for more than 1 year Tinea corporis Surgical History Surgical History History of abdominal surgery Family History Family History Mother Family history of scoliosis Diabetes mellitus Father Alive and well Social History Social History Smoking status: Former smoker Tobacco type: cigarettes Smoking end date: 06/20/11 Alcohol intake: former Alcohol use details: Jeff reports quitting 2 years ago Substance use: former Last use: Jeff reports quitting 1 year ago Lack of Transportation: No Lack of Food: Never True Current Housing: I Have Housing Concerned About Future Housing: No Difficulty Paying Gas/Electric Bills: YES Difficulty Paying for Meds: YES Currently Unemployed: No Education: High School Diploma/GED Difficulty w/ Childcare or Family Care: No Living arrangements: with family Occupation/Education: occupation Gender identity (if verbalized by the patient): Male Sexual Orientation (if Verbalized by the Patient): Straight or Heterosexual Exam Narrative: GENERAL: Well appearing, well-nourished, non-toxic, in no acute distress. HEAD: Normocephalic, atraumatic. NECK: Supple. No adenopathy, no masses. RESPIRATORY: Airway patent, respirations nonlabored. Clear to auscultation bilaterally, no rales, rhonchi, wheezing. CARDIOVASCULAR: Regular rate and rhythm without murmurs, rubs, or gallops. Radial pulses 2+ and equal bilaterally. ABDOMINAL: Soft, nontender, nondistended, no hepatosplenomegaly. Normoactive BS. MUSCULOSKELETAL: Moves all extremities. Strength/ROM intact without gross defo
[2023-01-24] MEDS: ACETAMINOPHEN 500 MG TABLET 1000 MG PO (14:24)
[2023-01-24 14:43] LABS: D Dimer < 0.27 ug/mL (<0.48)
[2023-01-24 16:03] LABS: Troponin I < 0.012 ng/mL (0.000-0.034)
[2023-01-24] MEDS: BELLADONNA ALK/PHENOB ELIX 10 ML, MAG HYDROX/ALUMINUM HYD/SIMETH 30 ML, LIDOCAINE HCL 2... PO (16:47)
[2023-01-24] MEDS: busPIRone HCL 10 MG TABLET PO (17:55)
[2023-01-24 19:06] LABS: Troponin I < 0.012 ng/mL (0.000-0.034)
== END 2023-01-24 19:51 | disposition home or self-care (01) ==
PROVIDERS: Emergency Medicine; Emergency Provider Physician Assistant; PCP Family Medicine
DX: R07.89 Other chest pain (principal); F41.9 Anxiety disorder, unspecified; K50.90 Crohn's disease, unspecified, without complications; Z93.3 Colostomy status; Z87.891 Personal history of nicotine dependence; I45.10 Unspecified right bundle-branch block; R00.0 Tachycardia, unspecified; R94.31 Abnormal electrocardiogram [ECG] [EKG]
CPT/HCPCS: 36415; 71046; 80053; 83690; 84484; 85025; 85380; 85610; 85730; 93005; 99284; A9270

== ENCOUNTER 2023-03-16 01:18 | Day surgery (SDC) | payer OTHER, SELFPAY ==
[2023-03-04 10:12] VITALS: BMI 26.6
--- NOTE | 2023-03-15 12:58 | PM.HPGS ---
History of Present Illness History of Present Illness Consent: Risks, benefits, and alternatives have been discussed and questions answered. Patient agrees to proceed with procedure. Chief complaint: epigastric pain Narrative: Jeff Noguera is a 37 year old male who has been having pain in the epigastric area almost every day for the past several weeks. He has also lost about 10 lb recently Review of Systems Review of Systems: All systems reviewed & are unremarkable except as noted in HPI and below PMFSH Past Medical History Medical History Colostomy present Crohn's disease of large intestine Ex-smoker for more than 1 year Tinea corporis Surgical History Surgical History History of abdominal surgery Family History Family History Mother Family history of scoliosis Diabetes mellitus Father Alive and well Social History Social History Smoking packs per day: 1.5 Smoking cigarettes per day: 30.0 Years smoked: 12 Smoking pack-years: 18.00 Smoking status: Former smoker Tobacco type: cigarettes Smoking end date: 06/20/11 Alcohol intake: former Alcohol use details: Jeff reports NO HISTORY OF ABUSE- USE WAS OCC. BUT NO LONGER DRINKS ANY ETOH DUE TO NON-ALCOHOLIC FATTY LIVER Substance use: former Substance use type: does not use and marijuana Last use: Jeff reports NO HISTORY OF ABUSE- USE WAS OCC. RECREATIONAL Lack of Transportation: No Lack of Food: Never True Current Housing: I Have Housing Concerned About Future Housing: No Difficulty Paying Gas/Electric Bills: YES Difficulty Paying for Meds: YES Currently Unemployed: No Education: High School Diploma/GED Difficulty w/ Childcare or Family Care: No Living arrangements: with family Occupation/Education: occupation Gender identity (if verbalized by the patient): Male Sexual Orientation (if Verbalized by the Patient): Straight or Heterosexual Spiritual care concerns: No Meds Home Medications and Allergies Home Medications Medication Instructions Recorded Confirmed Type ibuprofen 200 mg tablet (Advil) 200 mg PO Q6H PRN Pain 01/27/21 03/16/23 History sertraline 25 mg tablet (Zoloft) 25 mg PO DAILY #90 tabs 04/21/23 09/27/23 Rx budesonide 3 mg 3 mg PO DAILY #30 ea 11/10/22 03/16/23 Rx capsule,delayed,extended release buspirone 10 mg tablet 10 mg PO .PRN PRN Anxiety 03/01/23 03/16/23 History Allergies Allergy/AdvReac Type Severity Reaction Status Date / Time codeine Allergy Unknown flushing, Verified 03/16/23 12:33 feels hot Exam Const: General: alert Orientation/consciousness: patient oriented x3 Resp: Auscultation: clear to auscultation bilaterally Cardio: Rhythm: regular rhythm GI: GI Palp: Yes Soft to palpation and No Tenderness to palpation present (GI) Neuro: General: patient oriented x3 Assessment and Plan Assessment and plan (1) Epigastric pain: Code(s): R10.13 - Epigastric pain Status: Acute Assessment and Plan: EGD with possible biopsy or dilatation or cautery.
[2023-03-16 12:25] VITALS: BP 132/81; PULSE 95; RESP 18; TEMP 36.3; O2SAT 99; BMI 27.2
--- NOTE | 2023-03-16 12:42 | WPDANESEPPF ---
Anes - Initial Pre Proc Eval Procedure: Operation Date: 03/16/23 13:45 Proposed Procedures p Esophagogastroduodenoscopy - Gaurav Leone MD Date/Time: 03/16/23 12:42 Surgeon: Gaurav eLone MD Pre Op Diagnosis: epigastric pain Patient Data Age: 37 Gender: M Height: 1.75 m Weight: 83.7 kg Last Vital Signs Temp 97.4 F L 03/16/23 12:25 Pulse 95 03/16/23 12:25 Resp 18 03/16/23 12:25 BP 132/81 03/16/23 12:25 Pulse Ox 99 03/16/23 12:25 O2 Del Method Room Air 03/16/23 12:25 Allergies Allergy/AdvReac Type Severity Reaction Status Date / Time codeine Allergy Unknown flushing, Verified 03/16/23 12:33 feels hot Home Medications Medication Instructions Recorded Confirmed Type ibuprofen 200 mg tablet (Advil) 200 mg PO Q6H PRN Pain 01/27/21 03/16/23 History sertraline 25 mg tablet (Zoloft) 25 mg PO DAILY #90 tabs 10/08/22 03/16/23 Rx budesonide 3 mg 3 mg PO DAILY #30 ea 11/10/22 03/16/23 Rx capsule,delayed,extended release buspirone 10 mg tablet 10 mg PO .PRN PRN Anxiety 03/01/23 03/16/23 History Patient hx anesthesia problems: none Family hx anesthesia problems: none Results Review: All pre-operative results and documents have been reviewed as part of the pre-operative evaluation. [facility] Past Medical History Medical History Colostomy present Crohn's disease of large intestine Ex-smoker for more than 1 year Tinea corporis Surgical History Surgical History History of abdominal surgery Family History Family History Mother Family history of scoliosis Diabetes mellitus Father Alive and well Social History Social History (Updated 03/04/23 @ 10:31 by Jud Freeman RN) Smoking packs per day: 1.5 Smoking cigarettes per day: 30.0 Years smoked: 12 Smoking pack-years: 18.00 Smoking status: Former smoker Tobacco type: cigarettes Smoking end date: 06/20/11 Alcohol intake: former Alcohol use details: Jeff reports NO HISTORY OF ABUSE- USE WAS OCC. BUT NO LONGER DRINKS ANY ETOH DUE TO NON-ALCOHOLIC FATTY LIVER Substance use: former Substance use type: does not use and marijuana Last use: Jeff reports NO HISTORY OF ABUSE- USE WAS OCC. RECREATIONAL Lack of Transportation: No Lack of Food: Never True Current Housing: I Have Housing Concerned About Future Housing: No Difficulty Paying Gas/Electric Bills: YES Difficulty Paying for Meds: YES Currently Unemployed: No Education: High School Diploma/GED Difficulty w/ Childcare or Family Care: No Living arrangements: with family Occupation/Education: occupation Gender identity (if verbalized by the patient): Male Sexual Orientation (if Verbalized by the Patient): Straight or Heterosexual Spiritual care concerns: No Anes - Eval Final PreProcedure Day of Procedure 03/16/23 12:42 Patient weight: normal Heart: regular rate and rhythm Lungs: clear to auscultation Airway: Mallampati scale class II Neurological: alert and oriented Last oral intake: >/= 8 hours ASA classification: III Emergent: no Anesthetic plan: proceed Anesthesia type and monitoring: general GIVS and standard monitoring Results Review: All pre-operative results and documents have been reviewed as part of the pre-operative evaluation. Informed Consent: The patient's anesthetic plan and its attendant risks and benefits were discussed with the patient/family/POA. Questions were solicited and answers provided to the satisfaction of the patient/family/POA.
[2023-03-16] MEDS: LACTATED RINGERS 1,000 ML 150 ML IV CONT (12:44)
[2023-03-16] MEDS: BENZOCAINE (*SP) 60 ML SPRAY CAN (HURRICAINE) 1 SPRAY MUCOUS MEM (13:35)
[2023-03-16 13:55] VITALS: BP 102/57; PULSE 94; RESP 22; O2SAT 96
[2023-03-16 14:05] VITALS: BP 108/76; PULSE 85; RESP 22; O2SAT 97
[2023-03-16 14:15] VITALS: BP 128/90; PULSE 81; RESP 21; O2SAT 97
== END 2023-03-16 14:29 | disposition home or self-care (01) ==
PROVIDERS: PCP Family Medicine; Visit Provider Internal Medicine Gastroenterology
PROC: 0DJ08ZZ Inspection of Upper Intestinal Tract, Via Natural or Artificial Opening Endoscopic (ICD-10-PCS; CPT 43235; principal; 2023-03-16 13:45)
DX: K20.0 Eosinophilic esophagitis (principal); K22.2 Esophageal obstruction; K44.9 Diaphragmatic hernia without obstruction or gangrene; K50.90 Crohn's disease, unspecified, without complications; Z93.3 Colostomy status; Z87.891 Personal history of nicotine dependence
CPT/HCPCS: 43239; 87081; 88305; J2704; J7120

== ENCOUNTER 2023-03-22 07:23 | Outpatient (CLI) | payer OTHER, SELFPAY ==
--- NOTE | ~2023-03-22 | US_ITS ---
Abdominal Sonogram: Real-time sonographic imaging of the abdomen was performed. Clinical History: Fatty liver Findings: The liver appears echogenic, with no evidence of mass lesion or bile duct dilatation. Main portal vein demonstrates normal direction of flow. The spleen is normal in size without evidence of focal lesion. There is a probable 2.8 cm splenule adjacent to the spleen. The gallbladder is well dis tended, and appears normal with no evidence of gallstone or wall thickening. The common bile duct precious sures 4 mm. The visualized pancreas, aorta, and IVC are unremarkable. The right kidney measures 10. 9 cm in length and the left kidney measures 11.2 cm. There is no hydronephrosis or renal calculus. Impression: Diffuse fatty infiltration of the liver. 2.8 cm probable splenule. Reviewed, dictated and finalized at [facility]. Impression: Diffuse fatty infiltration of the liver. 2.8 cm probable splenule.
== END 2023-03-22 07:24 | disposition home or self-care (01) ==
PROVIDERS: PCP Family Medicine; Visit Provider Internal Medicine Gastroenterology
DX: K76.0 Fatty (change of) liver, not elsewhere classified (principal); R94.5 Abnormal results of liver function studies
CPT/HCPCS: 76700

== ENCOUNTER 2023-04-23 11:49 | Emergency (ER) | payer OTHER, SELFPAY ==
[2023-04-23 11:51] VITALS: BP 192/96; PULSE 132; RESP 18; TEMP 36.3; O2SAT 98
[2023-04-23 12:03] VITALS: BP 171/88; PULSE 115; RESP 16; O2SAT 96
--- NOTE | 2023-04-23 12:48 | ED.SKABFB ---
HPI - Skin/Abscess/Foreign Bdy General Chief complaint: Skin/Abscess/Foreign Body Stated complaint: cellulitis Time Seen by Provider: 04/23/23 12:30 History of Present Illness HPI narrative: Patient is a 37-year-old male with a history of Crohn's status post ileostomy presenting with a rash. Patient states that he woke up this morning and noticed a red rash across his lower abdomen. States that it was slightly tender at first but no longer is. States that it looks similar to an episode of cellulitis he had once. States that he thinks he accidentally scratched himself while changing his ostomy bag in the last few days. He denies fevers or chills, nausea or vomiting, abdominal pain, itching. Denies further complaints. Related Data Home Medications Medication Instructions Recorded Confirmed ibuprofen 200 mg tablet (Advil) 200 mg PO Q6H PRN Pain 01/27/21 03/16/23 buspirone 10 mg tablet 10 mg PO .PRN PRN Anxiety 03/01/23 03/16/23 Allergies Allergy/AdvReac Type Severity Reaction Status Date / Time codeine Allergy Unknown flushing, Verified 04/23/23 12:02 feels hot Review of Systems Review of Systems: All systems reviewed & are unremarkable except as noted in HPI and below PMFSH Past Medical History Medical History Colostomy present Crohn's disease of large intestine Ex-smoker for more than 1 year Tinea corporis Surgical History Surgical History History of abdominal surgery Family History Family History Mother Family history of scoliosis Diabetes mellitus Father Alive and well Social History Social History Smoking packs per day: 1.5 Smoking cigarettes per day: 30.0 Years smoked: 12 Smoking pack-years: 18.00 Smoking status: Former smoker Tobacco type: cigarettes Smoking end date: 06/20/11 Alcohol intake: current Alcohol use details: Jeff reports NO HISTORY OF ABUSE- USE WAS OCC. BUT NO LONGER DRINKS ANY ETOH DUE TO NON-ALCOHOLIC FATTY LIVER Substance use: never Substance use type: does not use and marijuana Last use: Jeff reports NO HISTORY OF ABUSE- USE WAS OCC. RECREATIONAL Lack of Transportation: No Lack of Food: Never True Current Housing: I Have Housing Concerned About Future Housing: No Difficulty Paying Gas/Electric Bills: YES Difficulty Paying for Meds: YES Currently Unemployed: No Education: High School Diploma/GED Difficulty w/ Childcare or Family Care: No Living arrangements: with family Occupation/Education: occupation Gender identity (if verbalized by the patient): Male Sexual Orientation (if Verbalized by the Patient): Straight or Heterosexual Spiritual care concerns: No Exam Narrative: GENERAL: Well-appearing, in no acute distress, pleasant and cooperative HEAD: Normocephalic, atraumatic. EYES: PERRLA and EOMI. ENT: Mucous membranes moist. NECK: Supple. CHEST: Clear to auscultation. No respiratory distress. HEART: Mildly tachycardic, regular rhythm ABDOMEN: Soft, nontender, + ileostomy in place with light brown stool in the bag, slightly erythematous rash extending from the ostomy to the left side of his abdomen, slightly warm to the touch, nontender EXTREMITIES: Normal range of motion. SKIN: Warm, dry, as above NEURO: No focal deficits. Alert and oriented x3. PSYCH: Normal mood and affect. Course Vital Signs Vital signs: Vital Signs Temperature 97.4 F L 04/23/23 11:51 Pulse Rate 132 H 04/23/23 11:51 Respiratory Rate 18 04/23/23 11:51 Blood Pressure 192/96 H 04/23/23 11:51 Pulse Oximetry 98 04/23/23 11:51 Temperature 97.4 F L 04/23/23 11:51 Pulse Rate 115 H 04/23/23 12:03 Respiratory Rate 16 04/23/23 12:03 Blood Pressure 171/88 H 04/23/23 12:03 Pulse O
[2023-04-23 13:02] VITALS: BP 132/88; PULSE 100; RESP 17; O2SAT 96
== END 2023-04-23 13:04 | disposition home or self-care (01) ==
PROVIDERS: Emergency Provider Emergency Medicine; PCP Family Medicine
DX: L03.311 Cellulitis of abdominal wall (principal); K50.90 Crohn's disease, unspecified, without complications; Z93.2 Ileostomy status; Z87.891 Personal history of nicotine dependence
CPT/HCPCS: 99283

== ENCOUNTER 2023-05-05 19:02 | Emergency (ER) | payer OTHER, SELFPAY ==
[2023-05-05] VITALS (9 sets, daily range): BP systolic 146–147; BP diastolic 80–93; PULSE 98–113; RESP 12–20; TEMP 36.8; O2SAT 96–100
--- NOTE | ~2023-05-05 | CT_ITS ---
EXAMINATION: CT abdomen pelvis w con DATE: 05/05/2023 22:22 INDICATION: Left upper quadrant abdominal pain TECHNIQUE: Computed tomography (CT) of the abdomen and pelvis was performed with 100 mL Omnipaque-350 intravenous contrast. Automated exposure control and iterative reconstruction technique were employe d. The dose-length product was 739.67 mGy-cm. COMPARISON: 09/25/2022 FINDINGS: Mild discoid atelectasis at the lingula and left lower lobe. Unchanged chronic pleural parenchymal sc arring at the lateral right lung base. Heart size is normal. No pericardial or pleural effusion. Live r, gallbladder, spleen, pancreas, bilateral adrenal glands and kidneys are normal. Suture line at the proximal margin of a right hemicolectomy with right lower quadrant and ileostomy. Chronic diffuse fa tty infiltration of the wall of the remaining decompressed colon which could be related to body habit us or chronic inflammation. There are also multiple colonic diverticula without adjacent inflammatory stranding to suggest diverticulitis. Indeterminate small linear density within the lumen of a loop o f small bowel in the midabdomen. No bowel obstruction. A few small to moderate-sized relatively widem outhed fat-containing ventral hernias along a midline abdominal scar. Bladder is normal. No free intr aperitoneal gas or fluid. No pathologically enlarged abdominal or pelvic lymphadenopathy. IMPRESSION: 1. No acute intra-abdominal/pelvic process. Reviewed, dictated and finalized at location A. L RECORDS MANAGER
[2023-05-05 19:42] LABS: Basophils Percent Auto 0.3 % (0.2-1.2); Eosinophils Percent Auto 0.3 % (0-4.4); Hemoglobin 15.2 g/dL (14.0-18.0); Immature Granulocyte Absolute 0.04 K/mm3 (0.00-0.031); Immature Granulocyte Percent A 0.3 % (0-0.5); Lymphocytes Absolute Auto 1.18 K/mm3 (0.9-3.2); Mean Corpuscular HGB Conc 34.5 g/dl (32-36); Mean Corpuscular Hemoglobin 30.6 pg (26-34); Mean Corpuscular Volume 88.7 fl (80-100); Mean Platelet Volume 9.6 fl (7.4-10.4); Monocytes Absolute Auto 0.4 K/mm3 (0.1-0.6); Monocytes Percent Auto 3.7 % (2.6-8.5); Neutrophils Absolute Auto 10.1 K/mm3 (1.3-6.7); Neutrophils Percent Auto 85.4 % (45.5-73.1); Platelet Count Result 286 k/mm3 (150-375); Red Blood Count 4.96 M/mm3 (4.6-6.20); Red Cell Distribution Width 13.9 % (11.5-14.5); White Blood Count 11.8 K/mm3 (4.5-10.0)
[2023-05-05 19:53] LABS: Potassium 3.6 mmol/L (3.4-5.0)
[2023-05-05 19:56] LABS: Alanine Aminotransferase 119 U/L (6-50); Alkaline Phosphatase 65 U/L (38-126); Anion Gap 14 mmol/L (8-16); Aspartate Amino Transferase 75 U/L (17-59); Bilirubin,Total 1.4 mg/dL (0.2-1.3); Blood Urea Nitrogen 8 mg/dL (9-20); Calcium 9.7 mg/dL (8.4-10.2); Carbon Dioxide 23 mmol/L (22-30); Chloride 102 mmol/L (98-107); Estimated CRCL calculation 108 ml/min; Estimated Glomerular Filt Rate > 60; Glucose 112 mg/dL (65-110); Lipase 63 U/L (23-300); Sodium 139 mmol/L (137-145)
--- NOTE | 2023-05-05 21:51 | ED.ABDPAIN ---
HPI - Abdominal Pain General Chief Complaint: Abdominal Pain Stated Complaint: nausea, vomitting Time Seen by Provider: 05/05/23 21:18 History of Present Illness HPI narrative: This is a 37-year-old male, with history of Crohn's status post ileostomy, who presents to the emergency department complaining of headache and bilateral flank pain for the past day. The patient states he woke early this morning, with pressure-like headache, rated 8/10 that has persisted. He states he has had multiple episodes of nonbloody vomiting with decreased ileostomy output. He has since developed bilateral flank pain, described as dull and rated 7/10. Related Data Home Medications Medication Instructions Recorded Confirmed ibuprofen 200 mg tablet (Advil) 200 mg PO Q6H PRN Pain 01/27/21 04/29/23 Allergies Allergy/AdvReac Type Severity Reaction Status Date / Time codeine Allergy Unknown flushing, Verified 04/29/23 13:58 feels hot Review of Systems Review of Systems: CONSTITUTIONAL: Denies fever, chills, or sweats. CARDIOVASCULAR: Denies chest pain, palpitations, or edema. RESPIRATORY: Denies cough or dyspnea. GASTROINTESTINAL: Abdominal pain, nausea and nonbloody vomiting denies diarrhea. GENITOURINARY: Denies dysuria or hematuria. SKIN: Denies rash or itching. MUSCULOSKELETAL: Denies back pain, joint pain, or myalgia. NEUROLOGIC: Headache denies numbness, dizziness, or weakness. PSYCHIATRIC: Denies anxiety or depression. PMFSH Past Medical History Medical History Colostomy present Crohn's disease of large intestine Ex-smoker for more than 1 year Tinea corporis Surgical History Surgical History History of abdominal surgery Family History Family History Mother Family history of scoliosis Diabetes mellitus Father Alive and well Social History Social History Smoking packs per day: 1.5 Smoking cigarettes per day: 30.0 Years smoked: 12 Smoking pack-years: 18.00 Smoking status: Former smoker Tobacco type: cigarettes Smoking end date: 06/20/11 Alcohol intake: current Alcohol use details: Jeff reports NO HISTORY OF ABUSE- USE WAS OCC. BUT NO LONGER DRINKS ANY ETOH DUE TO NON-ALCOHOLIC FATTY LIVER Substance use: never Substance use type: does not use and marijuana Last use: Jeff reports NO HISTORY OF ABUSE- USE WAS OCC. RECREATIONAL Lack of Transportation: No Lack of Food: Never True Current Housing: I Have Housing Concerned About Future Housing: No Difficulty Paying Gas/Electric Bills: YES Difficulty Paying for Meds: YES Currently Unemployed: No Education: High School Diploma/GED Difficulty w/ Childcare or Family Care: No Living arrangements: with family Occupation/Education: occupation Gender identity (if verbalized by the patient): Male Sexual Orientation (if Verbalized by the Patient): Straight or Heterosexual Spiritual care concerns: No Exam Narrative: GENERAL: Well-developed, well-nourished, appears uncomfortable HEAD: Normocephalic, atraumatic. EYES: PERRLA and EOMI. ENT: Nares clear, no rhinorrhea or epistaxis. Mucous membranes moist. Oropharynx without tonsillar hypertrophy exudate or other lesions. CHEST: Clear to auscultation. No respiratory distress. No wheezes rales or rhonchi HEART: Regular rate and rhythm. No murmur heard. Normal peripheral pulses. ABDOMEN: Soft, mild left upper quadrant tenderness to palpation without rebound or guarding, nondistended, normal active bowel sounds. An ileostomy in the right lower quadrant with normal stool output and no blood. Bilateral CVA tenderness to palpation EXTREMITIES: Normal range of motion. No edema. SKIN: Warm, dry, no rash. NEURO: No focal deficits. Alert and oriented x3.
[2023-05-05] MEDS: PROCHLORPERAZINE EDISYLATE 10 MG/2 ML VIAL IV PUSH (21:54)
[2023-05-05] MEDS: KETOROLAC 30 MG/ML VIAL (*BKC) IV PUSH (21:54)
[2023-05-05] MEDS: diphenhydrAMINE HCl INJ 50 MG/ML VIAL 25 MG IV PUSH (21:54)
[2023-05-05] MEDS: SODIUM CHLORIDE 0.9% IV 2,000 ML 999 ML IV CONT (21:55)
[2023-05-05 21:59] LABS: Appearance Urine Clear (Clear); Bacteria Urine None Seen /hpf; Bilirubin Urine Negative (Negative); Blood Urine Negative (Negative); Color Urine Dark Yellow (Yellow); Glucose Urine UA Negative (Negative); Ketones Urine Trace mg/dL (Negative); Leukocyte Esterase Ur Negative LEU/UL (Negative); Nitrate Urine Negative (Negative); Non Pathogenic Casts 0-2; Protein Urine 1+ mg/dL (Negative); Specific Grav Ur 1.032 (1.001-1.035); Squamous Epithelial Cell Urine None seen /hpf (Few); Urobilinogen Urine 0.2 mg/dL (<2.0); WBC Urine 0-5 /hpf; pH Urine 8.5 (5.0-9.0)
[2023-05-05 22:07] LABS: Add Urine Microscopic? YES
[2023-05-05 22:31] LABS: Influenza A QL RT-PCR Negative (Negative); Influenza B QL RT-PCR Negative (Negative); SARS-CoV-2 RNA PCR Negative (Negative)
[2023-05-05] MEDS: SULFAMETHOXAZOLE/TRIMETHOPRIM 800/160 MG DS TABLET 1 TAB PO (23:22)
--- NOTE | 2023-05-05 23:48 | PC.NURSE ---
Assumed care of pt. Report from VANESSA Dykes. Pt resting quietly per cart. IVF infusing.
[2023-05-06 00:02] VITALS: PULSE 91; RESP 14
[2023-05-06 00:15] VITALS: PULSE 102; RESP 15
[2023-05-06 00:16] VITALS: BP 122/68; PULSE 100; RESP 14
[2023-05-06 00:30] VITALS: PULSE 96; RESP 14
[2023-05-06 00:31] VITALS: BP 121/76; PULSE 91; RESP 13
== END 2023-05-06 00:51 | disposition home or self-care (01) ==
PROVIDERS: Emergency Provider Preventive Medicine Aerospace Medicine; PCP Family Medicine
DX: N10 Acute pyelonephritis (principal); R10.11 Right upper quadrant pain; Z20.822 Contact with and (suspected) exposure to COVID-19; K50.90 Crohn's disease, unspecified, without complications; Z93.2 Ileostomy status; Z87.891 Personal history of nicotine dependence
CPT/HCPCS: 36415; 74177; 80053; 81001; 83690; 85025; 87636; 96361; 96374; 96375; 99284; A9270; J0780; J1200; J1885; J7030; Q9967

== ENCOUNTER 2023-06-08 04:33 | Day surgery (SDC) | payer OTHER, SELFPAY ==
[2023-05-20 09:13] VITALS: BMI 28.8
--- NOTE | 2023-06-06 08:33 | SUR.PREOP ---
Patient called regarding upcoming procedure. Reviewed preop instructions, appointment times, and procedure prep.
--- NOTE | 2023-06-06 14:03 | PM.HPGS ---
History of Present Illness History of Present Illness Consent: Risks, benefits, and alternatives have been discussed and questions answered. Patient agrees to proceed with procedure. Chief complaint: Esophageal Stricture Narrative: Jeff Noguera is a 37 year old male Who few months ago was found have severe stricture of the distal is when investigated for dysphagia. Esophageal ulcerations were also He also has found have excessive eosinophils on biopsies in the proximal esophagus, 9 per high-power field which is borderline elevated. He has been taking pantoprazole 40 mg per day. Review of Systems Review of Systems: All systems reviewed & are unremarkable except as noted in HPI and below PMFSH Past Medical History Medical History Colostomy present Crohn's disease of large intestine Ex-smoker for more than 1 year Tinea corporis Surgical History Surgical History History of abdominal surgery Family History Family History Mother Family history of scoliosis Diabetes mellitus Father Alive and well Social History Social History Smoking packs per day: 1.5 Smoking cigarettes per day: 30.0 Years smoked: 12 Smoking pack-years: 18.00 Smoking status: Former smoker Tobacco type: cigarettes Smoking end date: 06/20/11 Alcohol intake: current Alcohol use details: Jeff reports NO HISTORY OF ABUSE- USE WAS OCC. BUT NO LONGER DRINKS ANY ETOH DUE TO NON-ALCOHOLIC FATTY LIVER Substance use: never Substance use type: does not use and marijuana Last use: Jeff reports NO HISTORY OF ABUSE- USE WAS OCC. RECREATIONAL Lack of Transportation: No Lack of Food: Never True Current Housing: I Have Housing Concerned About Future Housing: No Difficulty Paying Gas/Electric Bills: YES Difficulty Paying for Meds: YES Currently Unemployed: No Education: High School Diploma/GED Difficulty w/ Childcare or Family Care: No Living arrangements: with family Occupation/Education: occupation Gender identity (if verbalized by the patient): Male Sexual Orientation (if Verbalized by the Patient): Straight or Heterosexual Spiritual care concerns: No Meds Home Medications and Allergies Home Medications Medication Instructions Recorded Confirmed Type ibuprofen 200 mg tablet (Advil) 200 mg PO Q6H PRN Pain 01/27/21 05/20/23 History sertraline 25 mg tablet (Zoloft) 25 mg PO DAILY #90 tabs 10/08/22 05/20/23 Rx pantoprazole 40 mg tablet,delayed 40 mg PO QAM #30 tabs 03/16/23 05/20/23 Rx release buspirone 10 mg tablet 10 mg PO BID PRN Anxiety #30 tabs 04/29/23 05/20/23 Rx Allergies Allergy/AdvReac Type Severity Reaction Status Date / Time codeine Allergy Unknown flushing, Verified 04/29/23 13:58 feels hot Exam Const: General: alert Orientation/consciousness: patient oriented x3 Resp: Auscultation: clear to auscultation bilaterally Cardio: Rhythm: regular rhythm GI: GI Palp: Yes Soft to palpation and No Tenderness to palpation present (GI) Neuro: General: patient oriented x3 Assessment and Plan Assessment and plan (1) Dysphagia: Code(s): R13.10 - Dysphagia, unspecified Status: Acute Assessment and Plan: EGD with possible biopsy or dilatation or cautery.
[2023-06-08 07:45] VITALS: BP 137/96; PULSE 104; RESP 18; TEMP 36.3; O2SAT 100; BMI 28.7
[2023-06-08] MEDS: LACTATED RINGERS 1,000 ML 150 ML IV CONT (08:05)
--- NOTE | 2023-06-08 08:06 | WPDANESEPPF ---
Anes - Initial Pre Proc Eval Procedure: Operation Date: 06/08/23 09:00 Proposed Procedures p Esophagogastroduodenoscopy - Gaurav Leone MD Date/Time: 06/08/23 08:06 Surgeon: Gaurav Leone MD Pre Op Diagnosis: Esophageal Stricture Patient Data Age: 37 Gender: M Height: 1.75 m Weight: 88.3 kg Last Vital Signs Temp 36.3 C L 06/08/23 07:45 Pulse 104 H 06/08/23 07:45 Resp 18 06/08/23 07:45 BP 137/96 H 06/08/23 07:45 Pulse Ox 100 06/08/23 07:45 O2 Del Method Room Air 06/08/23 07:45 Allergies Allergy/AdvReac Type Severity Reaction Status Date / Time codeine Allergy Unknown flushing, Verified 04/29/23 13:58 feels hot Home Medications Medication Instructions Recorded Confirmed Type ibuprofen 200 mg tablet (Advil) 200 mg PO Q6H PRN Pain 01/27/21 05/20/23 History sertraline 25 mg tablet (Zoloft) 25 mg PO DAILY #90 tabs 10/08/22 05/20/23 Rx pantoprazole 40 mg tablet,delayed 40 mg PO QAM #30 tabs 03/16/23 05/20/23 Rx release buspirone 10 mg tablet 10 mg PO BID PRN Anxiety #30 tabs 04/29/23 05/20/23 Rx Patient hx anesthesia problems: none Family hx anesthesia problems: none Results Review: All pre-operative results and documents have been reviewed as part of the pre-operative evaluation. [facility], [facility] Past Medical History Medical History Colostomy present Crohn's disease of large intestine Ex-smoker for more than 1 year Tinea corporis Surgical History Surgical History History of abdominal surgery Family History Family History Mother Family history of scoliosis Diabetes mellitus Father Alive and well Social History Social History Smoking packs per day: 1.5 Smoking cigarettes per day: 30.0 Years smoked: 12 Smoking pack-years: 18.00 Smoking status: Former smoker Tobacco type: cigarettes Smoking end date: 06/20/11 Alcohol intake: current Alcohol use details: Jeff reports NO HISTORY OF ABUSE- USE WAS OCC. BUT NO LONGER DRINKS ANY ETOH DUE TO NON-ALCOHOLIC FATTY LIVER Substance use: never Substance use type: does not use and marijuana Last use: Jeff reports NO HISTORY OF ABUSE- USE WAS OCC. RECREATIONAL Lack of Transportation: No Lack of Food: Never True Current Housing: I Have Housing Concerned About Future Housing: No Difficulty Paying Gas/Electric Bills: YES Difficulty Paying for Meds: YES Currently Unemployed: No Education: High School Diploma/GED Difficulty w/ Childcare or Family Care: No Living arrangements: with family Occupation/Education: occupation Gender identity (if verbalized by the patient): Male Sexual Orientation (if Verbalized by the Patient): Straight or Heterosexual Spiritual care concerns: No Anes - Eval Final PreProcedure Day of Procedure 06/08/23 08:06 Patient weight: overweight Heart: regular rate and rhythm Lungs: clear to auscultation Airway: Mallampati scale class II Neurological: alert and oriented Last oral intake: >/= 8 hours ASA classification: II Emergent: no Anesthetic plan: proceed Anesthesia type and monitoring: general GIVS and standard monitoring Results Review: All pre-operative results and documents have been reviewed as part of the pre-operative evaluation. Informed Consent: The patient's anesthetic plan and its attendant risks and benefits were discussed with the patient/family/POA. Questions were solicited and answers provided to the satisfaction of the patient/family/POA.
[2023-06-08 08:39] VITALS: BP 118/74; PULSE 77; RESP 16; O2SAT 97
[2023-06-08 08:49] VITALS: BP 111/72; PULSE 74; RESP 18; O2SAT 97
[2023-06-08 08:59] VITALS: BP 129/87; PULSE 84; RESP 18; O2SAT 98
== END 2023-06-08 09:10 | disposition home or self-care (01) ==
PROVIDERS: PCP Family Medicine; Visit Provider Internal Medicine Gastroenterology
PROC: 0DJ08ZZ Inspection of Upper Intestinal Tract, Via Natural or Artificial Opening Endoscopic (ICD-10-PCS; CPT 43235; principal; 2023-06-08 09:00)
DX: K22.2 Esophageal obstruction (principal); K21.00 Gastro-esophageal reflux disease with esophagitis, without bleeding; K50.90 Crohn's disease, unspecified, without complications; Z93.3 Colostomy status; Z90.49 Acquired absence of other specified parts of digestive tract; Z87.891 Personal history of nicotine dependence
CPT/HCPCS: 43249; 88305; C1726; J2704; J7120

== ENCOUNTER 2023-07-19 16:38 | Emergency (ER) | payer OTHER, SELFPAY ==
--- NOTE | ~2023-07-19 | XR_ITS ---
EXAMINATION: XR chest 2V DATE: 07/19/2023 17:04 INDICATION: Chest pain. TECHNIQUE: Frontal and lateral views of the chest were obtained. COMPARISON: Chest 2 views 01/24/2023, CT abdomen and pelvis 05/05/2023 FINDINGS: There is mild scarring at right lung base. No pleural effusion or pneumothorax. The heart s ize is normal. IMPRESSION: 1. Mild scarring at right lung base. Reviewed, dictated and finalized at location A. FITTER
--- NOTE | 2023-07-19 16:38 | ECG_ITS ---
Measurements Intervals [place] Rate: 103 P: 43 NV: 161 QRS: 46 QRSD: 109 T: 22 QT: 350 QTc: 460 Interpretive Statements SINUS TACHYCARDIA POSSIBLE LEFT ATRIAL ENLARGEMENT INCOMPLETE RIGHT BUNDLE BRANCH BLOCK BORDERLINE R WAVE PROGRESSION, ANTERIOR LEADS BORDERLINE ECG COMPARED TO ECG 01/24/2023 12:45:11 NO SIGNIFICANT CHANGES Electronically Signed On 07-19-2023 17:03:46 ADVERTISING INTERN by Amos Uribe D.O.
[2023-07-19 16:56] VITALS: BP 150/100; PULSE 107; RESP 16; TEMP 36.5; O2SAT 99
[2023-07-19 17:00] LABS: Basophils Percent Auto 0.5 % (0.2-1.2); Eosinophils Absolute Auto 0.2 K/mm3 (0-0.3); Eosinophils Percent Auto 1.9 % (0-4.4); Hemoglobin 14.8 g/dL (14.0-18.0); Immature Granulocyte Absolute 0.02 K/mm3 (0.00-0.031); Immature Granulocyte Percent A 0.3 % (0-0.5); Lymphocytes Absolute Auto 2.18 K/mm3 (0.9-3.2); Lymphocytes Percent Auto 28.1 % (18.3-44.2); Mean Corpuscular HGB Conc 32.9 g/dl (32-36); Mean Corpuscular Hemoglobin 30.1 pg (26-34); Mean Corpuscular Volume 91.5 fl (80-100); Mean Platelet Volume 9.8 fl (7.4-10.4); Monocytes Absolute Auto 0.5 K/mm3 (0.1-0.6); Monocytes Percent Auto 5.8 % (2.6-8.5); Neutrophils Absolute Auto 4.9 K/mm3 (1.3-6.7); Neutrophils Percent Auto 63.4 % (45.5-73.1); Platelet Count Result 263 k/mm3 (150-375); Red Blood Count 4.92 M/mm3 (4.6-6.20); Red Cell Distribution Width 13.9 % (11.5-14.5); White Blood Count 7.8 K/mm3 (4.5-10.0)
[2023-07-19 17:13] LABS: Alanine Aminotransferase 139 U/L (6-50); Albumin Level 4.6 g/dL (3.5-5.1); Alkaline Phosphatase 80 U/L (38-126); Anion Gap 9 mmol/L (8-16); Aspartate Amino Transferase 92 U/L (17-59); Bilirubin,Total 1.1 mg/dL (0.2-1.3); Blood Urea Nitrogen 10 mg/dL (9-20); Calcium 9.4 mg/dL (8.4-10.2); Carbon Dioxide 27 mmol/L (22-30); Chloride 103 mmol/L (98-107); Estimated CRCL calculation 111 ml/min; Estimated Glomerular Filt Rate > 60; Glucose 105 mg/dL (65-110); Lipase 72 U/L (23-300); Potassium 3.8 mmol/L (3.4-5.0); Sodium 139 mmol/L (137-145)
[2023-07-19 17:24] LABS: INR 0.9; Prothrombin Time 12.9 Seconds (11.1-14.7)
[2023-07-19 17:25] LABS: Troponin I < 0.012 ng/mL (0.000-0.034)
--- NOTE | 2023-07-19 19:47 | ECG_ITS ---
Measurements Intervals [place] Rate: 87 P: 35 NH: 166 QRS: 26 QRSD: 111 T: 15 QT: 372 QTc: 450 Interpretive Statements SINUS RHYTHM INCOMPLETE RIGHT BUNDLE BRANCH BLOCK BORDERLINE ECG COMPARED TO ECG 07/19/2023 16:44:37 SINUS RHYTHM NOW PRESENT Electronically Signed On 07-19-2023 20:18:56 PIN TICKET MACHINE OPERATOR by Amos Uribe D.O.
--- NOTE | 2023-07-19 20:00 | PC.NURSE ---
3hr EKG with Troponin done at 19:[address] Xie
[2023-07-19 20:11] LABS: Troponin I < 0.012 ng/mL (0.000-0.034)
[2023-07-19 20:43] VITALS: BP 148/94; PULSE 78; PULSE 84; RESP 19; O2SAT 99
[2023-07-19] MEDS: ASPIRIN 81 MG CHEWABLE TABLET 324 MG PO (20:47)
--- NOTE | 2023-07-19 21:25 | ED.GENADULT ---
HPI - General Adult General Chief complaint: Chest Pain Stated complaint: chest pain Time Seen by Provider: 07/19/23 20:49 History of Present Illness HPI narrative: This is a 37-year-old male history of anxiety presenting chest week. Patient says he has He sharp pain on the left side of his chest. Nonradiating at intensity constant. He has had this multiple times in the past he has had anxiety. Patient also notes that he has had tingling his hands and feet as well as feeling of overall dry. He any association with exertion diaphoresis exercise or vomiting. Patient had a stress test last year was told by Cardiology that his heart was okay. Related Data Home Medications Medication Instructions Recorded Confirmed ibuprofen 200 mg tablet (Advil) 200 mg PO Q6H PRN Pain 01/27/21 07/19/23 Allergies Allergy/AdvReac Type Severity Reaction Status Date / Time codeine Allergy Unknown flushing, Verified 07/19/23 20:45 feels hot PMFSH Past Medical History Medical History Colostomy present Crohn's disease of large intestine Ex-smoker for more than 1 year Tinea corporis Surgical History Surgical History History of abdominal surgery Family History Family History Mother Family history of scoliosis Diabetes mellitus Father Alive and well Social History Social History Smoking packs per day: 1.5 Smoking cigarettes per day: 30.0 Years smoked: 12 Smoking pack-years: 18.00 Smoking status: Former smoker Tobacco type: cigarettes Smoking end date: 06/20/11 Alcohol intake: current Alcohol use details: Jeff reports NO HISTORY OF ABUSE- USE WAS OCC. BUT NO LONGER DRINKS ANY ETOH DUE TO NON-ALCOHOLIC FATTY LIVER Substance use: never Substance use type: does not use and marijuana Last use: Jeff reports NO HISTORY OF ABUSE- USE WAS OCC. RECREATIONAL Lack of Transportation: No Lack of Food: Never True Current Housing: I Have Housing Concerned About Future Housing: No Difficulty Paying Gas/Electric Bills: YES Difficulty Paying for Meds: YES Currently Unemployed: No Education: High School Diploma/GED Difficulty w/ Childcare or Family Care: No Living arrangements: with family Occupation/Education: occupation Gender identity (if verbalized by the patient): Male Sexual Orientation (if Verbalized by the Patient): Straight or Heterosexual Spiritual care concerns: No Exam Narrative: APPEARANCE: No apparent distress. Head: atraumatic. EYES: EOMI, NOSE: Atraumatic NECK: Trachea midline RESPIRATORY: No increased rate of breathing, CTAB CARDIOVASCULAR: RRR,No peripheral edema ABDOMINAL: Non-distended MUSCULOSKELETAl: No obvious deformities NEURO: Alert. Moving 4/4 extremities SKIN:: Warm, dry. Normal color PSYCHIATRIC: Normal affect Course Vital Signs Vital signs: Vital Signs Temperature 97.7 F 07/19/23 16:56 Pulse Rate 107 H 07/19/23 16:56 Respiratory Rate 16 07/19/23 16:56 Blood Pressure 150/100 H 07/19/23 16:56 Pulse Oximetry 99 07/19/23 16:56 Oxygen Delivery Room Air 07/19/23 16:56 Temperature 97.7 F 07/19/23 16:56 Pulse Rate 84 07/19/23 20:43 Respiratory Rate 19 07/19/23 20:43 Blood Pressure 148/94 H 07/19/23 20:43 Pulse Oximetry 99 07/19/23 20:43 Oxygen Delivery Room Air 07/19/23 16:56 Medical Decision Making MDM Narrative Medical decision making narrative: -Course: 37-year-old male anxiety presenting with chest pain x1 week. Laboratory studies including troponin x2 were unremarkable. Chest x-ray showed no acute findings. patient has had negative stress testing 1 year ago. heart score less than 4. Discharged home care -DDX includes but is not limited to: Anxiety, ACS, pleurisy, chest
[2023-07-19 21:59] VITALS: BP 127/94; PULSE 82; RESP 21; O2SAT 95
== END 2023-07-19 22:01 | disposition home or self-care (01) ==
PROVIDERS: Emergency Medicine; Emergency Provider Emergency Medicine; PCP Family Medicine
DX: F41.9 Anxiety disorder, unspecified (principal); R07.9 Chest pain, unspecified; Z93.3 Colostomy status; Z87.891 Personal history of nicotine dependence
CPT/HCPCS: 36415; 71046; 80053; 83690; 84484; 85025; 85610; 85730; 93005; 99284; A9270

== ENCOUNTER 2023-09-07 07:22 | Outpatient (CLI) | payer OTHER, SELFPAY ==
--- NOTE | ~2023-09-07 | NM_ITS ---
EXAMINATION: NM alicia stress w perfusion DATE: 09/07/2023 10:42 INDICATION: Chest pain TECHNIQUE: Rest images were obtained following intravenous administration of 10.5 mCi Tc99m tetrofosm in (Myoview). The patient was infused intravenously with Lexiscan (Regadenoson). Then, 33 mCi Tc99m t etrofosmin Myoview) was administered intravenously, and stress images were obtained. Repeat post stre ss images were obtained in the prone position. Data was reconstructed into short axis and horizontal and vertical long axis SPECT images. Gated SPECT images were also obtained. COMPARISON: None. FINDINGS: There is small region of moderate decreased activity on both the rest and stress images con sistent with infarct at the mid inferior segment extending into the apical inferior segment on the st ress but not the rest images consistent with ischemia. This is unchanged with prone imaging. There is normal left ventricular chamber size, wall motion and ejection fraction. Left ventricular ejection fraction measures 66%. IMPRESSION: 1. Small moderate severity infarct at the mid inferior segment with moderate reversible ischemia in t he immediately adjacent apical inferior segment. 2. Left ventricular ejection fraction measuring 66%. Reviewed, dictated and finalized at location A. IMPRESSION: 1. Small moderate severity infarct at the mid inferior segment with moderate re versible ischemia in the immediately adjacent apical inferior segment. 2. Left ventricular ejection fraction measuring 66%.
--- NOTE | 2023-09-07 07:42 | ECHO_ITS ---
Patient Info Name: Jeff Noguera Age: 37 years : 1985 Gender: Male Ht: 70 in Wt: 203 lbs BSA: 2.15 m2 HR: 76 bpm BP: 158 / 113 mmHg Technical Quality: Good Exam Date: 09/07/2023 7:48 AM Exam Location: Echo Lab Patient Status: Outpatient Admit Date: 09/07/2023 Staff Ordering Physician: Eduardo Childs MD Reactor Service Operator: Attending Provider: Eduardo Childs MD Referring Physician: Amadeo MURILLO; Exam Type: CA echo doppler color flow Study Info Indications R07.9 - Chest pain, unspecified Complete two-dimensional, color flow and Doppler transthoracic echocardiogram is performed. Summary 1. Complete two-dimensional, color flow and Doppler transthoracic echocardiogram is performed. 2. Left ventricular chamber dimension is normal. 3. Left ventricular systolic function is normal, estimated at 60-65%. 4. The left ventricular diastolic function is normal. 5. E/e' 8 is minimally elevated. 6. There is mild tricuspid valve regurgitation. 7. No pulmonary hypertension, estimated pulmonary arterial systolic pressure is 37 mmHg. 8. Dilated inferior vena cava with >50% collapse upon inspiration consistent with elevated right atrial pressure, 10 mmHg. Left Ventricle E/e' 8 is minimally elevated. Left ventricular chamber dimension is normal. Left ventricular systolic function is normal, estimated at 60-65%. The left ventricular diastolic function is normal. Right Ventricle Right ventricular systolic function is normal and with normal TAPSE 2.1 cm. Right ventricular chamber dimension is normal. Left Atria Left atrial chamber dimension is normal. Right Atria Right atrial chamber dimension is normal. Aortic Valve The aortic valve is trileaflet. There is no aortic valve stenosis. There is no aortic valve regurgitation. Pulmonic Valve There is no pulmonic regurgitation. Mitral Valve There is no mitral valve stenosis. There is no mitral valve regurgitation. Tricuspid Valve There is mild tricuspid valve regurgitation. No pulmonary hypertension, estimated pulmonary arterial systolic pressure is 37 mmHg. Pericardium/Pleural There is no pericardial effusion. Inferior Vena Cava Dilated inferior vena cava with >50% collapse upon inspiration consistent with elevated right atrial pressure, 10 mmHg. Aorta The aortic root size at the sinus of Valsalva is normal. Left Ventricular Outflow Tract Name Value Normal LVOT 2D LVOT Diameter 2.1 cm LVOT Doppler LVOT Peak Gradient 3 mmHg LVOT Mean Gradient 1 mmHg LVOT VTI 18 cm LVOT VTI/AV VTI Ratio 0.6 LVOT Stroke Volume 59 ml LVOT CO 4.1 l/min LVOT CI 1.9 l/min/m2 Pulmonic Valve Name Value Normal PV Doppler PV Peak Gradient 5 mmHg PV Regurgitation Doppler
--- NOTE | 2023-09-07 07:43 | EST_ITS ---
Patient Info Name: Jeff Noguera Age: 37 years : 1985 Gender: Male Ht: 69 in Wt: 200 lbs BSA: 2.12 m2 HR: 84 bpm BP: 138 / 100 mmHg Exam Date: 09/07/2023 9:58 AM Exam Location: Echo Lab Patient Status: Outpatient Admit Date: 09/07/2023 Staff Ordering Physician: Eduardo Childs MD Attending Provider: Eduardo Childs MD Exercise Physician: Amos Uribe DO Exam Type: CA stress alicia w NM Study Info A regadenoson stress test was performed. Summary 1. 1. Negative lexiscan stress test for ischemic ST changes by ECG criteria. 2. 2. Stable hemodynamics throughout the test. 3. 3. Nuclear scan to follow and will be reported separately. Please correlate with it. 4. 4. Patient informed of the above results. Protocol: Lexiscan Stress ECG Details Stage: REST Duration (min): 1 min : 1 sec HR (bpm): 83 SBP (mmHg): 138 DBP (mmHg): 100 Stage: REST Duration (min): 7 min : 14 sec HR (bpm): 93 SBP (mmHg): 138 DBP (mmHg): 100 Stage: STAGE 1 Duration (min): 1 min : 0 sec HR (bpm): 116 SBP (mmHg): 139 DBP (mmHg): 105 Stage: RECOVERY Duration (min): 1 min : 0 sec HR (bpm): 121 SBP (mmHg): 139 DBP (mmHg): 105 Stage: RECOVERY Duration (min): 2 min : 0 sec HR (bpm): 103 SBP (mmHg): 139 DBP (mmHg): 105 Stage: RECOVERY Duration (min): 3 min : 0 sec HR (bpm): 100 SBP (mmHg): 132 DBP (mmHg): 89 Stage: RECOVERY Duration (min): 4 min : 0 sec HR (bpm): 93 SBP (mmHg): 132 DBP (mmHg): 89 Stage: RECOVERY Duration (min): 4 min : 32 sec HR (bpm): 105 SBP (mmHg): 137 DBP (mmHg): 82 Rest HR: 93 bpm Peak HR: 121 bpm Rest Sys BP: 138 mmHg Peak Sys BP: 139 mmHg Max Pred HR: 181 bpm % Max Pred HR: 67 % Target HR: 154 bpm Max RPP: 16,819 bpm*mmHg Termination Reason: Completed protocol Cardiac Symptoms: Shortness of breath Total Time: 1 min : 0 sec Rest Bailon BP: 100 mmHg Peak Bailon BP: 105 mmHg Total Dose: 0.4 mg Resting ECG Sinus rhythm. Stress ECG No ST changes. Arrhythmias PVC's. Report Signatures
== END 2023-09-07 07:23 | disposition home or self-care (01) ==
LOC: ANHCARD 07:24
PROVIDERS: PCP Family Medicine; Visit Provider Emergency Medicine
DX: R07.9 Chest pain, unspecified (principal)
CPT/HCPCS: 78452; 93017; 93306; A9502; J2785

== ENCOUNTER 2023-09-16 08:27 | Outpatient (CLI) | payer OTHER, SELFPAY ==
--- NOTE | ~2023-09-16 | US_ITS ---
EXAMINATION: US abdomen limited DATE: 09/16/2023 09:47 INDICATION: Right upper quadrant pain TECHNIQUE: Multiple grayscale and Doppler ultrasound images of the abdomen were obtained. COMPARISON: 03/22/2023 FINDINGS: Bowel gas obscures visualization of the pancreas. The liver demonstrates increased echogeni city, heterogenous echotexture, and decreased through transmission. No surface nodularity. Normal hep atopetal flow in the main portal vein. The gallbladder is normal with no abnormal wall thickening, pe richolecystic fluid or stones. The normal common bile duct measures 5 mm. There was no sonographic Mu rphy sign. IMPRESSION: 1. Diffuse hepatic steatosis. Reviewed, dictated and finalized at location A.
== END 2023-09-16 08:28 | disposition home or self-care (01) ==
PROVIDERS: PCP Family Medicine; Visit Provider Nurse Practitioner
DX: K76.0 Fatty (change of) liver, not elsewhere classified (principal)
CPT/HCPCS: 76705

== ENCOUNTER 2023-12-15 09:09 | Emergency (ER) | payer OTHER, SELFPAY ==
--- NOTE | 2023-12-15 09:21 | ED.URI ---
HPI - URI/Sore Throat General Chief Complaint: Upper Respiratory Infection Stated Complaint: Strep Symptoms Time Seen by Provider: 12/15/23 09:23 Source: patient, RN notes reviewed and old records reviewed Mode of arrival: ambulatory Limitations: no limitations History of Present Illness HPI Narrative: 47 year old male presents to [facility] with complaints of 3 day history of sore throat, sinus congestion and drainage, some cough, body aches, and had fever up to 101F during the night last night. Patient reports that co-worker has scarlet fever and exposed to her early in the week. Patient reports he has been doing lavage on his sinuses with lot of light yellow/green mucous noted. Patient reports that throat is sore and has been taking Benadryl,and Advil and Day Quil for his symptoms. MD elicited complaint: sore throat Onset (ago): day(s) (3) Consistency: progressively worsening Severity: moderate Pain scale (0-10): 6 Able to tolerate fluids by mouth: Yes Exacerbating factors: swallowing Treatments prior to arrival: ibuprofen and other (DayQuil and Benadryl) Related Data Home Medications Medication Instructions Recorded Confirmed ibuprofen 200 mg tablet (Advil) 200 mg PO Q6H PRN Pain 01/27/21 12/15/23 omega 3-tny-lbb-fish oil 1,000 mg 1 cap PO DAILY 09/12/23 12/15/23 (120 mg-180 mg) capsule (Fish Oil) Allergies Allergy/AdvReac Type Severity Reaction Status Date / Time codeine Allergy Unknown flushing, Verified 12/05/23 14:56 feels hot Review of Systems Review of Systems: CONSTITUTIONAL: Reports malaise, chills, sweats, or fever. EYES: Denies visual changes, redness, or discharge. ENT: Reports rhinorrhea, congestion, sinus pain, no otalgia and positive for sore throat. CARDIOVASCULAR: Denies chest pain, palpitations, or edema. RESPIRATORY: Reports cough.? Denies dyspnea. GASTROINTESTINAL: Denies abdominal pain, nausea, vomiting, diarrhea SKIN: Denies rash or itching. MUSCULOSKELETAL: Reports myalgia. NEUROLOGIC: Denies headache. All systems reviewed & are unremarkable except as noted in HPI and below PMFSH Past Medical History Medical History Colostomy present Crohn's disease of large intestine Ex-smoker for more than 1 year Tinea corporis Surgical History Surgical History History of abdominal surgery Family History Family History Mother Family history of scoliosis Diabetes mellitus Father Alive and well Sibling Pancreatic cancer Social History Social History Smoking packs per day: 1.5 Smoking cigarettes per day: 30.0 Years smoked: 12 Smoking pack-years: 18.00 Smoking status: Former smoker Tobacco type: cigarettes Smoking end date: 06/20/11 Alcohol intake: current Alcohol use details: Jeff reports NO HISTORY OF ABUSE- USE WAS OCC. BUT NO LONGER DRINKS ANY ETOH DUE TO NON-ALCOHOLIC FATTY LIVER Substance use: never Substance use type: does not use and marijuana Last use: Jeff reports NO HISTORY OF ABUSE- USE WAS OCC. RECREATIONAL Do You Feel Safe in your Home?: Yes Lack of Transportation: No Lack of Food: Never True Current Housing: I Have Housing Concerned About Future Housing: No Difficulty Paying Gas/Electric Bills: YES Difficulty Paying for Meds: YES Currently Unemployed: No Education: High School Diploma/GED Difficulty w/ Childcare or Family Care: No Living arrangements: with family Occupation/Education: occupation Gender identity (if verbalized by the patient): Male Sexual Orientation (if Verbalized by the Patient): Straight or Heterosexual Spiritual care concerns: No Comments At time of signature, agree with nursing past medical, surgical, social and family history. There is no r
[2023-12-15 09:25] VITALS: BP 134/88; PULSE 101; RESP 16; TEMP 36.6; O2SAT 99
== END 2023-12-15 09:56 | disposition home or self-care (01) ==
PROVIDERS: Emergency Provider Registered Nurse; PCP Family Medicine
DX: U07.1 COVID-19 (principal); Z87.891 Personal history of nicotine dependence
CPT/HCPCS: 87081; 87426; 87804; 87880; 99213; G0463

== ENCOUNTER 2024-02-21 15:29 | Outpatient (CLI) | payer OTHER, SELFPAY ==
[2024-02-21 16:07] LABS: Alanine Aminotransferase 114 U/L (6-50); Albumin Level 4.7 g/dL (3.5-5.1); Alkaline Phosphatase 79 U/L (38-126); Aspartate Amino Transferase 80 U/L (17-59); CRP < 0.5 mg/dL (<1.0)
[2024-02-21 16:56] LABS: Iron 86 ug/dL (49-181)
[2024-02-21 17:06] LABS: Percent Iron Saturation 22 % (20-50)
[2024-02-21 17:25] LABS: Hepatitis B Surface Antigen Negative (Negative)
[2024-02-21 17:31] LABS: HAV RESULT Negative (Negative); Hepatitis B Core IgM Result Negative (Negative)
[2024-02-21 17:50] LABS: Hepatitis B Surface Anti Res Positive; Hepatitis C Virus Antibody Negative (Negative)
[2024-02-23 07:29] LABS: Hepatitis A Antibody Total REACTIVE (NON-REACTIVE); Hepatitis B Core Ab Total NON-REACTIVE (NON-REACTIVE)
[2024-02-26 11:38] LABS: Actin Antibody (IgG) <20 U (<20)
[2024-02-27 13:19] LABS: LKM 1 Antibody <=20.0 U (<=20.0)
[2024-02-28 10:50] LABS: Mitochondrial (M2) Ab (IgG) <20.0 U
[2024-02-28 14:14] LABS: ALT 86 U/L (9-46); Alpha-2-Macroglobulin 125 mg/dL (106-279); Apolipoprotein A1 167 mg/dL (94-176); Fibrosis Stage F0; GGT 108 U/L (3-95); Haptoglobin 234 mg/dL (43-212); Necroinflammat Act Grade A1-A2; Reference ID 5096742; Total Bilirubin 0.7 mg/dL (0.2-1.2)
== END 2024-02-21 15:30 | disposition home or self-care (01) ==
LOC: ANHLAB 15:31
PROVIDERS: PCP Family Medicine; Visit Provider Nurse Practitioner
DX: K50.00 Crohn's disease of small intestine without complications (principal); K62.5 Hemorrhage of anus and rectum; K76.0 Fatty (change of) liver, not elsewhere classified; R19.5 Other fecal abnormalities; R19.8 Other specified symptoms and signs involving the digestive system and abdomen; R94.5 Abnormal results of liver function studies; K74.60 Unspecified cirrhosis of liver
CPT/HCPCS: 36415; 80074; 80076; 81596; 83520; 83540; 83550; 86038; 86039; 86140; 86364; 86376; 86704; 86706; 86708; 87340

== ENCOUNTER 2024-02-26 02:52 | Emergency (ER) | payer OTHER, SELFPAY ==
--- NOTE | ~2024-02-26 | CT_ITS ---
Non-contrast CT scan of the Abdomen and Pelvis Clinical indication: Right flank pain Technique: 2.5 mm axial scans were obtained through the abdomen and pelvis without intravenous or or al contrast. Dose reduction technique was used on this scan by utilizing automated exposure control a nd iterative reconstruction technique. The dose-length product (DLP) was 661.46 mGy-cm. COMPARISON: 05/05/2023 Findings: Images through the lung bases reveal no abnormalities. There is no evidence of renal or ureteral calculi. The kidneys and the ureters are nondilated. The liver, spleen, pancreas, gallbladder, and adrenals appear normal. There is no aortic aneurysm. There is no evidence of bowel obstruction. There is fatty infiltration of the colonic wall the transv erse colon and right colon, which could reflect chronic inflammatory change. Right lower quadrant ost sharlene present. Images through the pelvis were performed. There is no evidence of ascites or lymphadenopathy. Urinary bladder unremarkable. No pelvic mass seen. No ascites. Impression: No acute abnormality seen. No urolithiasis or hydronephrosis identified. Postoperative changes of bowel with chronic fatty infiltration of the colon, which suggests sequela o f chronic inflammatory change. Reviewed, dictated and finalized at location . Impression: No acute abnormality seen. No urolithiasis or hydronephrosis identified. Postoperative changes of bowel with chronic fatty infiltration of the colon, wh ich suggests sequela of chronic inflammatory change.
[2024-02-26 02:53] VITALS: BP 147/97; PULSE 100; RESP 20; TEMP 36.4; O2SAT 100
[2024-02-26 03:25] LABS: Basophils Percent Auto 0.5 % (0.2-1.2); Eosinophils Absolute Auto 0.3 K/mm3 (0-0.3); Eosinophils Percent Auto 3.6 % (0-4.4); Hematocrit 42.4 % (42.0-52.0); Hemoglobin 14.6 g/dL (14.0-18.0); Immature Granulocyte Absolute 0.03 K/mm3 (0.00-0.031); Immature Granulocyte Percent A 0.4 % (0-0.5); Lymphocytes Absolute Auto 1.81 K/mm3 (0.9-3.2); Lymphocytes Percent Auto 23.4 % (18.3-44.2); Mean Corpuscular HGB Conc 34.4 g/dl (32-36); Mean Platelet Volume 9.7 fl (7.4-10.4); Monocytes Absolute Auto 0.6 K/mm3 (0.1-0.6); Monocytes Percent Auto 7.4 % (2.6-8.5); Neutrophils Percent Auto 64.7 % (45.5-73.1); Platelet Count Result 264 k/mm3 (150-375); Red Blood Count 4.71 M/mm3 (4.6-6.20); White Blood Count 7.8 K/mm3 (4.5-10.0)
[2024-02-26 03:32] LABS: Add Urine Microscopic? YES; Appearance Urine Clear (Clear); Bacteria Urine None Seen /hpf; Bilirubin Urine Negative (Negative); Blood Urine Negative (Negative); Color Urine Dark Yellow (Yellow); Glucose Urine UA Negative (Negative); Ketones Urine Trace mg/dL (Negative); Leukocyte Esterase Ur Negative LEU/UL (Negative); Need Manual Microscopic Reviewed; Nitrate Urine Negative (Negative); Protein Urine 1+ mg/dL (Negative); RBC Urine 0-2 /hpf (0-2); Specific Grav Ur 1.034 (1.001-1.035); Squamous Epithelial Cell Urine None Seen /hpf (Few); WBC Urine 0-5 /hpf (0-3); pH Urine 5.5 (5.0-9.0)
[2024-02-26 03:40] LABS: Alanine Aminotransferase 88 U/L (6-50); Albumin Level 4.4 g/dL (3.5-5.1); Alkaline Phosphatase 81 U/L (38-126); Anion Gap 13 mmol/L (4-12); Aspartate Amino Transferase 69 U/L (17-59); Bilirubin,Total 0.8 mg/dL (0.2-1.3); Blood Urea Nitrogen 9 mg/dL (9-20); Calcium 9.3 mg/dL (8.4-10.2); Carbon Dioxide 20 mmol/L (22-30); Chloride 104 mmol/L (98-107); Estimated CRCL calculation 120 ml/min; Estimated Glomerular Filt Rate > 60; Glucose 184 mg/dL (65-110); Potassium 3.9 mmol/L (3.4-5.0); Sodium 137 mmol/L (137-145)
[2024-02-26 04:59] VITALS: BP 170/110; PULSE 96; RESP 15; O2SAT 95
--- NOTE | 2024-02-26 05:12 | ED.ABDPAIN ---
HPI - Abdominal Pain General Chief Complaint: Urogenital-Male Stated Complaint: Right sided abd pain/back pain, flank pain Time Seen by Provider: 02/26/24 04:15 History of Present Illness HPI narrative: Patient is a 38-year-old male with a history of Crohn's status post ileostomy presenting with right flank pain. Patient states that for the last several days he has had right flank pain that goes into the upper part of his abdomen. States that it feels a lot worse whenever he lays down. Associated with nausea but no vomiting. States that he has had a little bit of bloody stool in his ostomy but this is not outside of the norm for him. No hematuria or dysuria. No further complaints. Related Data Home Medications Medication Instructions Recorded Confirmed ibuprofen 200 mg tablet (Advil) 200 mg PO Q6H PRN Pain 01/27/21 12/15/23 omega 1-esl-tht-fish oil 1,000 mg 1 cap PO DAILY 09/12/23 12/15/23 (120 mg-180 mg) capsule (Fish Oil) Allergies Allergy/AdvReac Type Severity Reaction Status Date / Time codeine Allergy Unknown flushing, Verified 02/26/24 02:59 feels hot Review of Systems Review of Systems: All systems reviewed & are unremarkable except as noted in HPI and below PMFSH Past Medical History Medical History Colostomy present Crohn's disease of large intestine Ex-smoker for more than 1 year Tinea corporis Surgical History Surgical History History of abdominal surgery Family History Family History Mother Family history of scoliosis Diabetes mellitus Father Alive and well Sibling Pancreatic cancer Social History Social History Smoking packs per day: 1.5 Smoking cigarettes per day: 30.0 Years smoked: 12 Smoking pack-years: 18.00 Smoking status: Former smoker Tobacco type: cigarettes Smoking end date: 06/20/11 Alcohol intake: current Alcohol use details: Jeff reports NO HISTORY OF ABUSE- USE WAS OCC. BUT NO LONGER DRINKS ANY ETOH DUE TO NON-ALCOHOLIC FATTY LIVER Substance use: never Substance use type: does not use and marijuana Last use: Jeff reports NO HISTORY OF ABUSE- USE WAS OCC. RECREATIONAL Do You Feel Safe in your Home?: Yes Lack of Transportation: No Lack of Food: Never True Current Housing: I Have Housing Concerned About Future Housing: No Difficulty Paying Gas/Electric Bills: YES Difficulty Paying for Meds: YES Currently Unemployed: No Education: High School Diploma/GED Difficulty w/ Childcare or Family Care: No Living arrangements: with family Occupation/Education: occupation Gender identity (if verbalized by the patient): Male Sexual Orientation (if Verbalized by the Patient): Straight or Heterosexual Spiritual care concerns: No Exam Narrative: GENERAL: Nontoxic, no acute distress, pleasant and cooperative HEAD: Normocephalic, atraumatic. EYES: PERRLA and EOMI. ENT: Grossly unremarkable NECK: Supple. CHEST: Clear to auscultation. No respiratory distress. HEART: Regular rate and rhythm ABDOMEN: Soft, mild right upper quadrant tenderness without guarding or rebound, mild right CVA tenderness; ileostomy in place with light brown stool EXTREMITIES: Normal range of motion. No edema. SKIN: Warm, dry, no rash. NEURO: No focal deficits. Alert and oriented x3. PSYCH: Normal mood and affect. Course Vital Signs Vital signs: Vital Signs Temperature 97.6 F 02/26/24 02:53 Pulse Rate 100 02/26/24 02:53 Respiratory Rate 20 02/26/24 02:53 Blood Pressure 147/97 H 02/26/24 02:53 Pulse Oximetry 100 02/26/24 02:53 Oxygen Delivery Room Air 02/26/24 02:53 Temperature 98.1 F 02/26/24 07:11 Pulse Rate 98 02/26/24 07:11 Respiratory Rate 18 02/26/24 07:1
[2024-02-26] MEDS: ONDANSETRON INJ 4 MG/2 ML VIAL IV PUSH (05:18)
[2024-02-26] MEDS: HYDROmorphone HCL INJ (*CRX) 1 MG/ML SYR 0.5 MG IV PUSH (05:18)
[2024-02-26] MEDS: SODIUM CHLORIDE 0.9% IV 1,000 ML 999 ML IV CONT (05:18)
[2024-02-26 05:25] LABS: Lipase 279 U/L (23-300)
[2024-02-26 07:11] VITALS: BP 127/78; PULSE 98; RESP 18; TEMP 36.7; O2SAT 97
== END 2024-02-26 07:37 | disposition home or self-care (01) ==
PROVIDERS: Emergency Provider Emergency Medicine; PCP Family Medicine
DX: R10.9 Unspecified abdominal pain (principal); Z93.2 Ileostomy status; K50.90 Crohn's disease, unspecified, without complications
CPT/HCPCS: 36415; 74176; 80053; 81001; 83690; 85025; 96361; 96374; 96375; 99284; J1170; J2405; J7030

== ENCOUNTER 2024-04-11 05:39 | Day surgery (SDC) | payer OTHER, SELFPAY ==
[2024-04-02 09:07] VITALS: BMI 30.2
[2024-04-11 06:42] VITALS: BP 121/91; PULSE 101; RESP 18; TEMP 36.1; O2SAT 98
[2024-04-11] MEDS: LACTATED RINGERS 1,000 ML 150 ML IV CONT (06:57)
--- NOTE | 2024-04-11 07:19 | WPDANESEPPF ---
Anes - Initial Pre Proc Eval Procedure: Operation Date: 04/11/24 08:00 Proposed Procedures p Esophagogastroduodenoscopy - Tyson Williamson MD s Flexible Sigmoidoscopy - Tyson Williamson MD Date/Time: 04/11/24 07:19 Surgeon: Tyson Williamson MD Pre Op Diagnosis: hemorrhage, epigastric pain, GERD, ileostomy stat Patient Data Age: 38 Gender: M Height: 1.75 m Weight: 90.4 kg Last Vital Signs Temp 97.0 F L 04/11/24 06:42 Pulse 101 H 04/11/24 06:42 Resp 18 04/11/24 06:42 BP 121/91 H 04/11/24 06:42 Pulse Ox 98 04/11/24 06:42 O2 Del Method Room Air 04/11/24 06:42 Allergies Allergy/AdvReac Type Severity Reaction Status Date / Time codeine Allergy Unknown flushing, Verified 04/11/24 06:41 feels hot Home Medications Medication Instructions Recorded Confirmed Type ibuprofen 200 mg tablet (Advil) 200 mg PO Q6H PRN Pain 01/27/21 04/11/24 History sertraline 50 mg tablet (Zoloft) 50 mg PO DAILY #90 tabs 08/31/23 04/11/24 Rx omega 6-cep-jwi-fish oil 1,000 mg 1 cap PO DAILY 09/12/23 04/11/24 History (120 mg-180 mg) capsule (Fish Oil) pantoprazole 40 mg tablet,delayed See Rx Instructions .Route 09/19/23 04/11/24 Rx release .COMPLEX #30 tabs buspirone 10 mg tablet 10 mg PO BID Anxiety #180 tabs 11/23/23 04/11/24 Rx amlodipine 2.5 mg tablet See Rx Instructions .Route 04/02/24 04/11/24 Rx .COMPLEX #30 tabs Patient hx anesthesia problems: none Family hx anesthesia problems: none Results Review: All pre-operative results and documents have been reviewed as part of the pre-operative evaluation. [facility] Past Medical History Medical History Colostomy present Crohn's disease of large intestine Ex-smoker for more than 1 year Tinea corporis Surgical History Surgical History History of abdominal surgery Family History Family History Mother Family history of scoliosis Diabetes mellitus Father Alive and well Sibling Pancreatic cancer Social History Social History Smoking packs per day: 1 Smoking cigarettes per day: 20.0 Years smoked: 12 Smoking pack-years: 12.00 Smoking status: Former smoker Tobacco type: cigarettes Smoking end date: 06/20/11 Alcohol intake: current Alcohol use details: Jeff reports NO HISTORY OF ABUSE- USE WAS OCC. BUT NO LONGER DRINKS ANY ETOH DUE TO NON-ALCOHOLIC FATTY LIVER Substance use: never Substance use type: does not use and marijuana Last use: Jeff reports NO HISTORY OF ABUSE- USE WAS OCC. RECREATIONAL Do You Feel Safe in your Home?: Yes Lack of Transportation: No Lack of Food: Never True Current Housing: I Have Housing Concerned About Future Housing: No Difficulty Paying Gas/Electric Bills: YES Difficulty Paying for Meds: YES Currently Unemployed: No Education: High School Diploma/GED Difficulty w/ Childcare or Family Care: No Living arrangements: with family Occupation/Education: occupation Gender identity (if verbalized by the patient): Male Sexual Orientation (if Verbalized by the Patient): Straight or Heterosexual Spiritual care concerns: No Anes - Eval Final PreProcedure Day of Procedure 04/11/24 07:19 Patient weight: normal Heart: regular rate and rhythm Lungs: clear to auscultation Airway: Mallampati scale class II Neurological: alert and oriented Last oral intake: >/= 8 hours ASA classification: II Emergent: no Anesthetic plan: proceed Anesthesia type and monitoring: general GIVS and standard monitoring Results Review: All pre-operative results and documents have been reviewed as part of the pre-operative evaluation. HTN, Crohns disease, exsmoker quit 2011. Informed Consent: [facility]
--- NOTE | 2024-04-11 08:04 | PM.HPGS ---
History of Present Illness History of Present Illness Consent: Risks, benefits, and alternatives have been discussed and questions answered. Patient agrees to proceed with procedure. Chief complaint: hemorrhage, epigastric pain, GERD, ileostomy stat Narrative: Jeff Noguera is a 38 year old male with gerd on protonix, had esophageal dilation by Dr Leone, recently symptomatic again. He has h/o Crohn's with ileostomy, not taking any medication, noted rectal discharge. Last ileoscopy 2018 normal Review of Systems Review of Systems: All systems reviewed & are unremarkable except as noted in HPI and below PMFSH Past Medical History Medical History Colostomy present Crohn's disease of large intestine Ex-smoker for more than 1 year Tinea corporis Surgical History Surgical History History of abdominal surgery Family History Family History Mother Family history of scoliosis Diabetes mellitus Father Alive and well Sibling Pancreatic cancer Social History Social History Smoking packs per day: 1 Smoking cigarettes per day: 20.0 Years smoked: 12 Smoking pack-years: 12.00 Smoking status: Former smoker Tobacco type: cigarettes Smoking end date: 06/20/11 Alcohol intake: current Alcohol use details: Jeff reports NO HISTORY OF ABUSE- USE WAS OCC. BUT NO LONGER DRINKS ANY ETOH DUE TO NON-ALCOHOLIC FATTY LIVER Substance use: never Substance use type: does not use and marijuana Last use: Jeff reports NO HISTORY OF ABUSE- USE WAS OCC. RECREATIONAL Do You Feel Safe in your Home?: Yes Lack of Transportation: No Lack of Food: Never True Current Housing: I Have Housing Concerned About Future Housing: No Difficulty Paying Gas/Electric Bills: YES Difficulty Paying for Meds: YES Currently Unemployed: No Education: High School Diploma/GED Difficulty w/ Childcare or Family Care: No Living arrangements: with family Occupation/Education: occupation Gender identity (if verbalized by the patient): Male Sexual Orientation (if Verbalized by the Patient): Straight or Heterosexual Spiritual care concerns: No Meds Home Medications and Allergies Home Medications Medication Instructions Recorded Confirmed Type ibuprofen 200 mg tablet (Advil) 200 mg PO Q6H PRN Pain 01/27/21 04/11/24 History sertraline 50 mg tablet (Zoloft) 50 mg PO DAILY #90 tabs 08/31/23 04/11/24 Rx omega 6-dmu-owf-fish oil 1,000 mg 1 cap PO DAILY 09/12/23 04/11/24 History (120 mg-180 mg) capsule (Fish Oil) pantoprazole 40 mg tablet,delayed See Rx Instructions .Route 09/19/23 04/11/24 Rx release .COMPLEX #30 tabs buspirone 10 mg tablet 10 mg PO BID Anxiety #180 tabs 11/23/23 04/11/24 Rx amlodipine 2.5 mg tablet See Rx Instructions .Route 04/02/24 04/11/24 Rx .COMPLEX #30 tabs Allergies Allergy/AdvReac Type Severity Reaction Status Date / Time codeine Allergy Unknown flushing, Verified 04/11/24 06:41 feels hot Vital Signs Vital Signs - 24 hr 04/11/24 06:42 Temperature 97.0 F L Pulse Rate 101 H Respiratory Rate 18 Blood Pressure 121/91 H Pulse Oximetry 98 Oxygen Delivery Room Air Exam Const: General: comfortable and no acute distress HENMT: Face/Nose/Sinus: Normal nares present Eyes: General: appearance normal, both eyes and all related structures Neck: Neck: no JVD Resp: Auscultation: clear to auscultation bilaterally Cardio: Rate: regular rate Rhythm: regular rhythm GI: Inspection: non-distended GI Palp: Yes Soft to palpation Other: ileoscopy Skin: General skin exam: normal color Neuro: General: gait normal Speech: normal speech Extrem: General: normal to inspection Psych: Mental Status: mental st
--- NOTE | 2024-04-11 08:18 | SUR.OPER ---
EGD start 807 end 812, Colonoscopy start 818
[2024-04-11 08:35] VITALS: BP 128/91; PULSE 95; RESP 18; O2SAT 98
[2024-04-11 08:45] VITALS: BP 131/84; PULSE 95; RESP 18; O2SAT 99
[2024-04-11 09:08] VITALS: BP 138/100; PULSE 84; RESP 18; O2SAT 99
== END 2024-04-11 09:20 | disposition home or self-care (01) ==
PROVIDERS: PCP Family Medicine; Referring Provider Nurse Practitioner; Visit Provider Internal Medicine Gastroenterology
PROC: 0DJ08ZZ Inspection of Upper Intestinal Tract, Via Natural or Artificial Opening Endoscopic (ICD-10-PCS; CPT 43235; principal; 2024-04-11 08:00)
PROC: 0DJD8ZZ Inspection of Lower Intestinal Tract, Via Natural or Artificial Opening Endoscopic (ICD-10-PCS; CPT 45330; 2024-04-11 08:00)
DX: K21.00 Gastro-esophageal reflux disease with esophagitis, without bleeding (principal); K22.2 Esophageal obstruction; K44.9 Diaphragmatic hernia without obstruction or gangrene; K57.30 Diverticulosis of large intestine without perforation or abscess without bleeding; K22.89 Other specified disease of esophagus; K50.10 Crohn's disease of large intestine without complications; Z98.890 Other specified postprocedural states; Z93.3 Colostomy status; Z93.2 Ileostomy status; Z79.1 Long term (current) use of non-steroidal anti-inflammatories (NSAID); Z87.891 Personal history of nicotine dependence; Z87.19 Personal history of other diseases of the digestive system; Z80.0 Family history of malignant neoplasm of digestive organs
CPT/HCPCS: 43249; 45331; 88305; C1726; J2003; J2704; J7120

== ENCOUNTER 2024-08-22 10:38 | Outpatient (CLI) | payer OTHER, SELFPAY ==
--- NOTE | ~2024-08-22 | US_ITS ---
RIGHT UPPER QUADRANT ABDOMINAL ULTRASOUND (Doppler ultrasound interrogation techniques used as needed for this exam.) Ordering provider: Tyson Williamson MD History: . K76.0 - Fatty (change of) liver, not elsewhere classified . Comparison: None. FINDINGS: PANCREAS: Normal echotexture and size of the visualized portion. PORTAL VEIN: Hepatopedal flow demonstrated. LIVER: Normal size and increased echotexture. No focal hepatic lesions or perihepatic fluid collectio ns are identified. BILIARY DUCTS: No intra or extrahepatic biliary dilation. Common bile duct measures 4 mm in diameter which is normal for patient's age. GALLBLADDER: Normal. No stones, sludge, gallbladder wall thickening or pericholecystic fluid. Negati ve sonographic Gracia's sign. FREE FLUID: None visualized within the upper abdomen. IMPRESSION: Fat infiltration of the liver. Otherwise, normal right upper quadrant ultrasound. Reviewed, dictated and finalized at location A. '[facility] IMPRESSION: Fat infiltration of the liver. Otherwise, normal right upper quadrant ultrasoun d.
== END 2024-08-22 10:39 | disposition home or self-care (01) ==
PROVIDERS: PCP Internal Medicine Gastroenterology; Visit Provider Internal Medicine Gastroenterology
DX: K76.0 Fatty (change of) liver, not elsewhere classified (principal); R94.5 Abnormal results of liver function studies
CPT/HCPCS: 76705